=== PATIENT | female | born 1985 | race Caucasian/White ===

== ENCOUNTER 2023-05-08 11:03 | Outpatient (OUT) | payer MEDICAID, SELFPAY | END 2023-05-08 11:04 | disposition home or self-care (01) | PROVIDERS: PCP Family Medicine; Visit Provider Obstetrics & Gynecology | DX: Z01.818 Encounter for other preprocedural examination (principal); Z30.2 Encounter for sterilization ==

== ENCOUNTER 2023-05-15 06:08 | Day surgery (SDC) | payer MEDICAID, SELFPAY ==
[2023-05-08 11:25] VITALS: BP 117/68; PULSE 64; RESP 14; TEMP 36.3; O2SAT 98; BMI 29.9
[2023-05-15] VITALS (12 sets, daily range): BP systolic 115–136; BP diastolic 60–75; PULSE 62–97; RESP 10–18; TEMP 36–36.1; O2SAT 97–100; BMI 29.9
[2023-05-15 06:34] LABS: Basophils Absolute Auto 0.1 10^3/uL (0.0-0.1); Basophils Percent Auto 0.7 % (0.2-2.0); Eosinophils Absolute Auto 0.2 10^3/uL (0.0-0.7); Eosinophils Percent Auto 3.2 % (0.9-7.0); Hematocrit 39.8 % (36.0-48.0); Hemoglobin 13.1 g/dL (12.0-16.0); Immature Granulocytes Abs Auto 0.02 10^3/uL (0.00-0.03); Immature Granulocytes Pct Auto 0.3 % (0.0-0.5); Lymphocytes Percent Auto 29.4 % (20.5-60.0); Mean Corpuscular HGB Conc 32.9 g/dL (29.9-35.2); Mean Corpuscular Hemoglobin 29.6 pg (26.7-34.0); Mean Platelet Volume 9.7 fL (9.5-13.5); Monocytes Absolute Auto 0.6 10^3/uL (0.3-0.8); Monocytes Percent Auto 8.8 % (1.7-12.0); Neutrophils Absolute Auto 3.9 10^3/uL (1.4-6.5); Neutrophils Percent Auto 57.6 % (43.0-75.0); Platelet Count 273 10^3/uL (150-450); Red Blood Count 4.42 10^6/uL (4.20-5.40); Red Cell Distribution Width 12.8 % (11.0-15.0); White Blood Count 6.8 10^3/uL (4.0-11.0)
[2023-05-15 06:55] LABS: HCG Quantitative <1 mIU/mL
[2023-05-15] MEDS: LACTATED RINGER'S SOLUTION 1,000 ML 50 ML IV ×2 (07:05→08:28)
--- NOTE | 2023-05-15 08:41 | PM.ONB ---
Brief Operative Note Date of procedure: 05/15/23 Pre-op diagnosis: desires permanent sterilization Post-op diagnosis: same as pre-op Procedure: NAME OF PROCEDURE: robotic assisted bilateral laparoscopic salpingectomy with lt ovarian cystectomy PROCEDURE: The patient was taken back to the Operating Room where she was given general anesthesia without difficulty. She was then prepped and draped in the normal sterile fashion after being placed in a dorsal lithotomy position. A wet sponge stick was placed into the patient's vagina. Attention was then turned to the patient's abdomen, where a scalpel was used to make a small infraumbilical incision. The S retractors were then used to dissect the underlying layers until the fascia could be seen. The fascia was then grasped with Madison clamps and tented up. A knife was then used to make a small incision to the fascia. The muscle was identified, at that time two sutures of #0 Vicryl on a GI needle was then used and placed through the fascia. the peritoneum was then identified and entered bluntly. The 10-4 Daniel was then placed into the patient's abdomen. This was confirmed with direct visualization of the bowel, using the laparoscope. The patient's abdomen was then insufflated using approximately 4 liters of CO2 gas. Survey of the patient's abdomen demonstrated ovaries were normal in appearance as well as both tubes and uterus. A second and third rt and lt lateral robotic ports which were 5 and 8 mm in size, was then placed after the skin incision was made under direct visualization. robotic arms engaged. The patient's tube on the patient's right side was identified and tented up using a grasper, the vessel sealer apparatus was then used to come across the mesosalpingx from the fimbriated end to the insertion site at the uterus, the tube was then amputated and removed in its entirety. This was done on the contralateral side. The tubes were the removed from the patients abdomen. Lt ovarian cystectomy performed using the vessel sealer. Excellent hemostasis was noted. The lateral ports were then moved under direct visualization with excellent hemostasis. All instruments were removed from the patient's abdomen. The fascia was closed using the #0 Vicryl on GI needle. The skin was closed using 4-0 Vicryl subcuticularly. All instruments were removed from the patient's vagina as well. The patient was taken out of the dorsal lithotomy position and placed in the supine position and taken to recovery in stable condition. Sponge, lap and needle counts were correct x2. Anesthesia: AWILDA Surgeon: Reilly Capone [employer] Investigator: Fany Victor Estimated blood loss (mL): 5 Pathology: other (bilateral tubes) Condition: stable Disposition: PACU
[2023-05-15] MEDS: LACTATED RINGER'S SOLUTION 1,000 ML 150 ML IV (10:46)
== END 2023-05-15 11:20 | disposition home or self-care (01) ==
PROVIDERS: PCP Family Medicine; Visit Provider Obstetrics & Gynecology
PROC: (CPT 840; principal; 2023-05-15 07:30)
DX: Z30.2 Encounter for sterilization (principal); N83.202 Unspecified ovarian cyst, left side; G40.909 Epilepsy, unspecified, not intractable, without status epilepticus
CPT/HCPCS: 58661; 36415; 84702; 85025; 88302; J1170; J2704

== ENCOUNTER 2023-10-19 14:41 | Outpatient (OUT) | payer MEDICAID, SELFPAY | END 2023-10-19 14:42 | disposition home or self-care (01) | LOC: PST 14:41 | PROVIDERS: PCP Family Medicine; Visit Provider Surgery | DX: Z01.818 Encounter for other preprocedural examination (principal); L72.0 Epidermal cyst ==

== ENCOUNTER 2023-10-21 08:35 | Day surgery (SDC) | payer MEDICAID, SELFPAY ==
--- NOTE | 2023-10-21 | OP_ITS ---
OPERATION DATE: 10/21/2023 PREOPERATIVE DIAGNOSIS: Epidermal cyst left posterior neck. POSTOPERATIVE DIAGNOSIS: Epidermal cyst left posterior neck. PROCEDURE: Excisional biopsy epidermal cyst left posterior neck. Total length of incision 1 cm. SURGEON: Chris Mcintosh M.D. INDICATIONS AND CONSENT: Patient is a 38-year-old female, with history of previously infected epidermal cyst. The infection is now resolved. She presents for excisional biopsy of this cyst for definitive treatment and diagnosis. Indications, risks, benefits, alternatives of proceeding with excisional biopsy were explained extensively to the patient, including the risks of bleeding, infection, scarring, pain, recurrence, need for further surgery. All of her questions were answered. Informed consent was obtained. PROCEDURE: Patient brought to the procedure room, placed in the prone position. The area was prepped and draped in the usual sterile fashion. It was anesthetized with 0.5% Marcaine plain. Elliptical incision was made in the area of the skin crease and carried down to subcutaneous tissue using sharp dissection. Total length of the incision was 1 cm. An epidermal cyst was excised in its entirety and sent off to pathology. The wound was irrigated. The subcutaneous tissue was re-approximated with interrupted 4-0 Monocryl suture. The skin was then closed with a running 4-0 subcuticular Monocryl suture and skin glue. Sterile dressing was applied. The sponge and needle count was correct x3 per nursing personnel. Patient tolerated procedure well, was sent to recovery room in good condition. CC: Ashish Bernard M.D. [email or web address]
--- OUTSIDE RECORDS SUMMARY | 2023-10-21 08:39 | XMS_ITS | CCD ---
Author Name Unknown Address [address] [place] [address] Organization [facility] Care Team Providers Care Airplane Tester Name Role Phone DENISE KWOK Attending Unavailable NAYELI, DR PAYAM Cabral Primary Care Unavailable GRECHNY ., ZAMZAM MENDEZ Consulting Unavailaarti e DENISE KWOK Admitting Unavailable JOHN ., DR PIERRE Attending Unavailable NADSANAZR, DR PAYAM [facility] Primary Care Unavailable JOHN ., DR PIERRE Admitting Unavailable JOHN ., DR PIERRE Consulting Unavailable DENISE KWOK Admitting Unavailable DENISE KWOK Consulting Unavailable DENISE KWOK Attending Unavailable NAYELI, DR PAYAM [facility]ral Primary Care Unavailable NAYELI, DR PAYAM Cabral Primary Care Unavailable RAVINDER DIAMOND Admitting Unavailable RAVINDER DIAMOND Consulting Unavailable RAVINDER DIAMOND Attending Unavailable BOONE SUNSHINE Consulting Unavailable PAYAM TYLER Attending Unavailable PAYAM TYLER Primary Care Physician Chris MACKAY Attending Unavailable PAYAM TYLER Referring Unavailable Allergies Allergy Classification Reported Allergen(s) Allergy Type Date of Onset Reaction(s) Facility (1 source) No Known Medication Allergies; Translations: [No Known Medication Allergies] Propensity to adverse reactions (disorder) [facility] Repository Medications Current Medications Medication Drug Class(es) Dates Sig (Normalized) Sig (Original) fluticasone propionate 0.05 mg/actuat metered dose nasal spray (1 source) Corticosteroid Start: 09-16-2023 Flonase 0.05 mg/inh [place] 1 spray(s), Nasal, BID, Refill(s) 0 Start Date: 09/16/23 Status: Ordered Problems Active Problems Problem Classification Problem Date Documented Date Episodic/Chronic Abdominal pain (4 sources) Pelvic and perineal pain; Translations: [PELVIC AND PERINEAL PAIN] Onset: 10-20-2022 Episodic Immunizations and screening for infectious disease (1 source) Encounter for screening for human papillomavirus (HPV); Translations: [ENC SCREENING HUMAN PAPILLOMAVIRUS] Onset: 12-13-2022 Episodic Inflammatory diseases of female pelvic organs (1 source) Acute vaginitis; Translations: [ACUTE VAGINITIS] Onset: 10-20-2022 Episodic Other female genital disorders (3 sources) Other specified noninflammatory disorders of vagina; Translations: [OTH SPEC NONINFLAMMATORY D/O VAGINA] Onset: 10-19-2022 Episodic Other nutritional; endocrine; and metabolic disorders (1 source) Body mass index 30+ - obesity 10-06-2023 Chronic Other nutritional; endocrine; and metabolic disorders (1 source) Obesity 09-16-2023 Chronic Other screening for suspected conditions (not mental disorders or infectious disease) (4 sources) Encounter for screening for malignant neoplasm of cervix; Translations: [ENC SCREENING MALIG NEOPLASM CERV] Onset: 12-09-2022 Episodic Other skin disorders (1 source) Rash and other nonspecific skin eruption; Translations: [RASH OTH NONSPECIFIC SKIN ERUPTION] Onset: 10-21-2022 Episodic Other skin disorders (1 source) Epidermoid cyst; Translations: [Epidermal cyst] Onset: 10-06-2023 Episodic Other skin disorders (1 source) Epidermoid cyst of skin of neck 10-06-2023 Episodic Other upper respiratory disease (1 source) Allergic rhinitis 09-16-2023 Chronic Unclassified (1 source) Sebaceous cyst of skin 09-16-2023 Past or Other Problems Problem Classification Problem Date Documented Da te Episodic/Chronic E Codes: Overexertion (1 source) Slipping, tripping and stumbling without falling due to stepping into hole or opening, initial encounter; Translations: [SLIP STUMBL NO FALL STEP HOLE INIT] Onset: 02-03-2022 Episodic Other non-traumatic joint disorders (3 sources) Pain in right ankle and joints of right foot; Translations: [PAIN IN RIGHT ANKLE] Onset: 02-01-2022 Episodic Sprains and strains (1 source) Sprain of unspecified ligament of right ankle, initial encounter; Translations: [SPRAIN UNS LIGAMENT RT ANKLE INIT] Onset: 02-03-2022 Episodic Results Test Name Value Interpretation Reference Range Facility Consent for Procedure/Surger yon 10-08-2023 Consent for Procedure/Surgery [id number]# 1.00TIFF [facility] Facesheeton 10-07-2023 Facesheet [id number] 0 [id number]#1 .00TIFF [facility] Insurance Correspondenceon 0 10-07-2023 Insurance Correspondence [id number]# 1.00TIFF [facility] Ambulatory Visit Summaryon 0 10-06-2023 Ambulatory Visit Summary JENNY CAO :1985 Visit Date:10/06/2023 Ambulatory Visit Instructions Your Care Team Attending Physician - ARNALDO DUMONT, Chris Thomas Primary Care Physician - NAYELI DUMONT, PAYAM Referring Physician - NAYELI DUMONT, PAYAM This Is Your Medications List Contact prescribing physician if questions or concerns fluticasone nasal (Flonase 0.05 mg/inh [place]) Procedures Performed Dilation and curettage, LEEP, Tubal ligation. Discharge Vitals Heart Rate (Peripheral) 70 Respiratory Rate 16 Blood Pressure 126/86 Height 154.9 cm Height 61 in Weight 74.2 kg Weight 163.24 lb BMI 30.92 Medications What How Much When Instructions Unchanged fluticasone nasal (Flonase 0.05 mg/ inh [place]) 1 Sprays Nasal Inhalation 2 times a day Contact prescribing physician if questions or concerns Medications and Immunizations Administered Not Given influenza virus vaccine, inactivated, Patient Refuses Allergies No Known Allergies No Known Medication Allergies Problems Ongoing - Any problem that you are currently receiving treatment for. Allergic rhinitis BMI 30.0-30.9,adult Obesity Sebaceous cyst Patient Survey You may receive a survey via text or e-mail asking about your office visit. Please share your experience with us by completing your survey. We appreciate your feedback and thank you for choosing us for your care. [facility] Physician Referralon 024 Physician Referral [id number]#1. 00TIFF [facility] PAP ACOG PANEL 2: 30 to 65on 12-18-2022 . . Normal [facility] Comment on above: Result Comment: Perf ormed at: WB Performed By: #### [id number] #### [facility] [address] [address] [address] Thomas Steele Age Gdln ACOG Testing 30-65 Normal [facility] Comment on above: Performed By: #### [id number] #### [facility] [address] [address] [address] Thomas Steele DIAGNOSIS: Comment Normal [facility] Comment on above: Result Comment: NEGA TIVE FOR INTRAEPITHELIAL LESION OR MALIGNANCY. Performed at: WB Performed By: #### 4 [id number] #### [facility] [address] [address] [address] Thomas Steele HPV Aptima Positive Abnormal Negative [facility] Comment on above: Result Comment: This nucleic acid amplification test detects fourteen high-risk HPV types (16,18,31,33,35,39,45,51,52,56,58,59,66,68) without differentiation. Performed at: =G Performed By: #### 4 [id number] #### [facility] [address] [address] [address] Thomas Steele HPV Genotype 16 Negative Normal Negative [facility] Comment on above: Performed By: #### 4 [id number] #### [facility] [address] [place] [address] Dr. Thomas Steele HPV Genotype 18,45 Negative Normal Negative [facility] Comment on above: Performed By: #### 4 [id number] #### [facility] [address] [address] [address] Thomas Steele HPV Genotype Reflex Comment Normal [facility] Comment on above: Result Comment: Aristeo polk, see HPV Genotype results. Performed at: WB Performed By: #### 4 [id number] #### [facility] [address] [place] [address] Dr. Thomas Steele Methodology: Comment Normal [facility] Comment on above: Result Comment: This liquid based ThinPrep(R) pap test was screened with the use of an image guided system. Performed at: WB Performed By: #### 4 [id number] #### [facility] [address] [place] [address] Dr. Thomas Steele Note: Comment Normal [facility] Comment on above: Result Comment: The Pap smear is a screening test designed to aid in the detection of premalignant and malignant conditions of the uterine cervix. It is not a diagnostic procedure and should not be used as the sole means of detecting cervical cancer. Both false-positive and false-negative reports do occur. . Performed at: WB Performed By: #### [id number] #### [facility] [address] [place] [address] Dr. Thomas Steele Performed by: Comment Normal [facility] Comment on above: Result Comment: Natalie Jung, Electric Tool Repairer (ASCP) Performed at: WB Performed By: #### [id number] #### [facility] [address] [place] [address] Dr. Thomas Steele Specimen adequacy: Comment Normal [facility] Comment on above: Result Comment: Sati sfactory for evaluation. Endocervical and/or squamous metaplastic cells (endocervical component) are present. Performed at: WB Performed By: #### 4 [id number] #### [facility] [address] [place] [address] Dr. 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 Typing was confirmed by monoclonal antibody microscopic immunofluorescence. Performed By: #### V IRALCX #### [facility] [address] [place] [address] Dr. Thmoas Steele CHLAMYDIA/GONOCOCCUS ERNESTO (SW AB/URINE/PAPon 10-22-2022 Chlamydia trachomatis, ERNESTO Negative Normal Negative [facility] Comment on above: Performed By: #### C T/NGNA #### [facility] [address] [place] [address] Dr. Thomas Steele Neisseria gonorrhoeae, ERNESTO Negative Normal Negative [facility] Comment on above: Performed By: #### C T/NGNA #### [facility] [address] [place] [address] Dr. Thomas Steele URon 10-19-2022 , QUAL Negative Normal NEGATIVE [facility] Comment on above: Performed By: #### P REGU #### [facility] [address] [place] [address] Dr. Thomas Steele WET PREPon 10-19-2022 CLUE CELLS SEEN Abnormal NONE SEEN [facility] Comment on above: Performed By: #### W P #### [facility] [address] [place] [address] Dr. Thomas Steele FUNGAL ELEMENTS NONE SEEN Normal NONE SEEN [facility] Comment on above: Performed By: #### W P #### [facility] [address] [place] [address] Dr. Thomas Steele RBC -WET PREP RARE Abnormal NONE SEEN [facility] Comment on above: Performed By: #### W P #### [facility] [address] [place] [address] Dr. Thomas Steele TRICHOMONAS NONE SEEN Normal NONE SEEN [facility] Comment on above: Performed By: #### W P #### [facility] [address] [place] [address] Dr. Thomas Steele WBC- WET PREP FEW Abnormal NONE SEEN [facility] Comment on above: Performed By: #### W P #### [facility] [address] [place] [address] Dr. Thomas Steele WET PREP BACTERIA MODERATE Abnormal NONE SEEN [facility] Comment on above: Performed By: #### W P #### [facility] [address] [place] [address] Dr. Thomas Steele XR ANKLE RT MIN 3 VIEWSon XR ANKLE RT MIN 3 VIEWS EXAM: XR ANKLE RT MIN 3 VIEWS 02/01/2022 12:29 AM EDT OH001 CLINICAL STATEMENT: Pain COMPARISON: No prior studies are available at the time of dictation. TECHNIQUE: AP and lateral views of the right ankle are submitted. FINDINGS: The osseous structures are intact and in anatomic alignment. There is no acute fracture and/or dislocation. The joint spaces are preserved. Mild lateral ankle soft tissue swelling. Bone mineralization is within normal limits for the patient's age. IMPRESSION: Mild lateral ankle soft tissue swelling. The fracture and/or dislocation. FOLLOW UP: Follow-up as clinically indicated. Electronically authenticated by: BOONE SUNSHINE Date: 2022-02-01 03:04 Normal [facility] Vital Signs Date Time Vital Sign Value Performing Clinician Carleen álvarez 10-06-2023 14:17-0500 Blood Pressure Location Chris ARNALDO [facility] 10-06-2023 14:17-0500 Diastolic blood pressure 86 mm[Hg] Chris MACKAY [facility] 10-06-2023 14:17-0500 Heart rate 70 /min Chris OLIVERL [facility] 10-06-2023 14:17-0500 Respiratory rate 16 /min Chris MACKAY [facility] 10-06-2023 14:17-0500 Systolic blood pressure 126 mm[Hg] Chris MACKAY [facility] Encounters Encounter Date Encounter Type Care Provider Facility Start: 10-06-2023 End: 10-07-2023 ambulatory Chris MACKAY Facility:[facility] Start: 10-06-2023 End: 10-06-2023 Patient encounter procedure Chris MACKAY [facility] Start: 09-03-2023 ambulatory Chris MACKAY Facility:[facility] Start: 09-02-2023 End: 09-02-2023 ambulatory PAYAM TYLER Not Available Start: 12-09-2022 End: 12-09-[address] IGNACIO LOPEZ . Facility:[facility] Start: 10-20-2022 End: 10-20-2022 ambulatory DENISE KWOK Facility:[facility] Start: 10-19-2022 End: 10-19-2022 ambulatory DENISE KWOK Facility:[facility] Start: 02-01-2022 End: 02-01-[address] PAYAM TYLER Facility:[facility] Procedures Date Procedure Procedure Detail Performing Clinician Dilation and curettage Johnnie MACKAY Ligation of fallopian tube Max MACKAY Loop electrosurgical excision procedure Chris MACKAY Immunizations Immunization Date Immunization Notes Care Provider Keiko ramirez NEGATED: Highlighted row has not occurred!10-06-2023 influenza virus vaccine, unspecified formulation Chris MACKAY [facility] Payers Date Payer Category Payer Medicaid [id number] 1985 Unknown [id number] 2.16.84 [id number] 1985 Unknown [id number] 2.16.84 [id number] 1985 Unknown [id number] 2.16.84 [id number] 1985 Unknown [id number] 2.16.84 [id number] 1985 Unknown [id number] 2.16.84 [id number] 1985 Unknown [id number] 2.16.8 [id number] 1961 Unknown [id number] Social History Date Type Detail Facility Start: 10-06-2023 Tobacco smoking status Never s moked tobacco (finding) [facility] Tobacco smoking status Never [facility] Sex Assigned At Female [facility] Functional Status Date Assessment Result Facility 10-06-2023 Functional Status N/A [facility] Clinical Note 10-06-2023 Note Date & Type Note Facility 10-06-2023 Note Chief Complaint consultation for sebaceous cyst HPI Staff 38 year old female presents on consultation from Dr. Tyler for sebaceous cyst. Reports she noted left posterior neck nodule approximately 1 year ago. She reports two months ago this area tripled in size, was red and sore. No ATB use. Area has never drained. Since this time, nodule has gradually reduced in size, redness and discomfort have resolved. History of Present Illness 38 yo female with 1 yr h/o epidermal cyst left posterior neck, 2 months ago became inflamed, enlarged to 3 x normal size, no drainage, no antibiotics; now back down to normal size, no pain or drainage; no asa or NSAID use; no tobacco use. Review of Systems PHQ Score Initial Depression Screen Score: 0 SCORE ROS - Provider Constitutional: no fever, no sweats, no weight loss. Eyes: no glasses, no blurred vision, no visual loss. ENMT: no dentures, no hoarseness, no swallowing difficulties, no hearing loss, no ear infection(s), no nose bleeds. Cardiovascular: normal blood pressure, no chest pain, regular heartbeat, no heart murmur. Respiratory: no shortness of breath, no cough, no asthma, no wheezing. Gastrointestinal: no nausea, no vomiting, no diarrhea, no constipation, no blood in stool, no change in bowel habits, no abdominal pain, no hepatitis. Genitourinary: no kidney stones, no urine infection, no dysuria. Musculoskeletal: no pain, no weakness. Skin: no changing moles, no rash, yes skin lumps. Neurologic: no seizures, no epilepsy, no headache. Psychiatric: no emotional or psychiatric problem. Heme/Lymph: no bleeding problems, no anemia, no blood clots, no transfusions. Allergy/Immunologic: no swollen lymph nodes/glands, no IV drug abuse. Other: Additional ROS info: Except as noted in the above Review of Systems and in the History of Present Illness, all other systems have been reviewed and are negative or noncontributory. Physical Exam Vitals & Measurements HR: 70(Peripheral) RR: 16 BP: 126/86 HT: 61 in HT: 154.9 cm WT: 74.2 kg WT: 163.24 lb BMI: 30.92 HEENT: normal conjunctiva, sclera clear, no scleral icterus, EOM intact, PERRLA, oral mucosa moist without lesions. Neck: trachea midline, no mass, symmetric, no thyromegaly or nodules, no adenopathy Respiratory: lungs CTA, respirations non labored. Cardiovascular: regular rate and rhythm, no murmur, no pedal edema or varicosities. Gastrointestinal: soft, non distended, no tenderness, no masses, no palpable hernias, diastasis recti no, no hepatosplenomegaly; normal bs Lymphatic: no cervical adenopathy, no axillary adenopathy, no inguinal adenopathy. Musculoskeletal: normal gait, digits and nails without infection, nodes, cyanosis, clubbing. Skin: no rashes, no lesions, no ulcers, left posterior neck with 1 cm epidermal cyst, no inflammation or erythema, no drainage. Psychiatric/Neuro: oriented to time, place, person, judgement normal, affect appropriate for age, insight intact, no focal deficits. Tests: review of old records completed , Discussed surgical options, risks, and possible complications with patient. Assessment/Plan 1. Epidermal cyst of neck (L72.0: Epidermal cyst) plan excisional biopsy under local anesthesia at [facility], informed consent obtained. Follow-up No qualifying data available Problem List/Past Medical History Ongoing Allergic rhinitis BMI 30.0-30.9,adult Epidermal cyst of neck Obesity Sebaceous cyst Historical No qualifying data Procedure/Surgical History Dilation and curettage, LEEP, Tubal ligation. Medications Flonase 0.05 mg/inh [place], 1 spray(s), Nasal, BID Allergies No Known Allergies No Known Medication Allergies Social History Alcohol - Denies Alcohol Use, 10/06/2023 Substance Abuse - Denies Substance Abuse, 10/06/2023 Tobacco Never (less than 100 in lifetime) Tobacco Use:. Never Smokeless Tobacco Use:., 10/06/2023 Family History Family history is negative Immunizations Vaccine Date Status Comments influenza virus vaccine, inactivated - Not Given Patient Refuses [facility] Comment on above: Result Comment: Elec tronically Signed By: ARNALDO DUMONT, Chris Beckwith\Date and Time Signed: 10/06/23 14:43 EST Evaluation + Plan note Note Date & Type Note Facility Evaluation + Plan note No data available for this section [facility] Discharge instructions Note Date & Type Note Facility Hospital Discharge instructions No data available for this section [facility] Progress note Note Date & Type Note Facility Progress note No data available for this section [facility] Summary Purpose Family History No Family History Records FoundNo Family History Records Found No data available for this section No Family History Records Found Advance Directives No Advanced Directives Records FoundNo Advanced Directives Records FoundNo Advanced Directives Records Found Additional Source Comments INFORMATION SOURCE (unrecogn ized section and content) DATE CREATED AUTHOR 12/18/2022 [facility] DATE CREATED AUTHOR AUTHOR'S ORGANIZ ATION 09/03/2023 [facility] EPIC DATE CREATED AUTHOR AUTHOR'S ORGANIZ ATION 10/13/2023 [facility] Patient Care team informatio n (unrecognized section and content) Personnel Name: PAYAM TYLER MD Address: Address: [address] [place] [address] FOR RECORDS PERTAINING TO PATIENTS WHO ARE OR HAVE BEEN ENROLLED IN A CHEMICAL DEPENDENCY/SUBSTANCEABUSE PROGRAM, SOME INFORMATION MAY BE OMITTED. This clinical summary was aggregated from multiple sources. Caution should be exercised in using it in the provision of clinical care. This summary normalizes information from multiple sources, and as a consequence, information in this document may materially change the coding, format and clinical context of patient data. In addition, data may be omitted in some cases. CLINICAL DECISIONS SHOULD BE BASED ON THE PRIMARY CLINICAL RECORDS. [facility] [employer] provides no warranty or guarantee of the accuracy or completeness of information in this document.
[2023-10-21 10:50] VITALS: BP 123/76; PULSE 72; RESP 18; O2SAT 98
[2023-10-21] MEDS: BUPIVACAINE HCL 0.5% PF 50 MG/10 ML VIAL INJ (10:52)
[2023-10-21 11:05] VITALS: BP 133/74; PULSE 64; RESP 18; O2SAT 98
== END 2023-10-21 11:15 | disposition home or self-care (01) ==
PROVIDERS: PCP Family Medicine; Visit Provider Surgery
PROC: (CPT 11421; principal; 2023-10-21 09:30)
DX: L72.0 Epidermal cyst (principal); Z98.51 Tubal ligation status
CPT/HCPCS: 11421; 88304

== ENCOUNTER 2023-12-14 21:33 | Outpatient (REF) | payer MEDICAID, SELFPAY ==
--- OUTSIDE RECORDS SUMMARY | 2023-12-14 21:38 | XMS_ITS | CCD ---
Author Organization [facility] Care Team Providers Care Social Services Name Role Phone DENISE KWOK Attending Unavailable NAYELI, DR PAYAM Cabral Primary Care Unavailable GRECHNY ., ZAMZAM MENDEZ Consulting Unavailaarti e DENISE KWOK Admitting Unavailable JOHN ., DR PIERRE Attending Unavailable NADERER, DR PAYAM Cabral Primary Care Unavailable JOHN ., DR PIERRE Admitting Unavailable JOHN ., DR PIERRE Consulting Unavailable DENISE KWOK Admitting Unavailable DENISE KWOK Consulting Unavailable DENISE KWOK Attending Unavailable NAYELI, DR PAYAM Cabral Primary Care Unavailable PEPEEREMartha, DR PAYAM Cabral Primary Care Unavailable RAVINDER DIAMOND Admitting Unavailable LOBORAVINDER Consulting Unavailable LOBO, RAVINDER Attending Unavailable BOONE SUNSHINE Consulting Unavailable PAYAM TYLER Attending Unavailable PAYAM TYLER Primary Care Physician Chris Mcintosh Attending Unavailable Chris Mcintosh Admitting Unavailable PAYAM TYLER Referring Unavailable Chris MCINTOSH Attending Unavailable NILL, Chris Thomas Attending Unavailable NILL, Chris Thomas Attending Unavailable Allergies Allergy Classification Reported Allergen(s) Allergy Type Date of Onset Reaction(s) Facility (1 source) No Known Medication Allergies; Translations: [No Known Medication Allergies] Propensity to adverse reactions (disorder) [facility] Medications Current Medications Medication Drug Class(es) Dates Sig (Normalized) Sig (Original) fluticasone propionate 0.05 mg/actuat metered dose nasal spray (2 sources) Corticosteroid Start: 09-16-2023 Flonase 0.05 mg/inh Moore 1 spray(s), Nasal, BID, Refill(s) 0 Start [...] Episodic Other nutritional; endocrine; and metabolic disorders (2 sources) Body mass index 30+ - obesity 10-06-2023 Chronic Other nutritional; endocrine; and metabolic disorders (2 sources) Obesity 09-16-2023 Chronic Other screening for suspected conditions (not mental disorders or infectious disease) (4 sources) Encounter for screening for malignant neoplasm of cervix; Translations: [ENC SCREENING MALIG NEOPLASM CERV] Onset: 12-09-2022 Episodic Other skin disorders (1 source) Rash and other nonspecific skin eruption; Translations: [RASH OTH NONSPECIFIC SKIN ERUPTION] Onset: 10-21-2022 Episodic Other skin disorders (2 sources) Epidermoid cyst; Translations: [Epidermal cyst] Onset: 10-06-2023 Episodic Other skin disorders (2 sources) Epidermoid cyst of skin of neck 10-06-2023 Episodic Other upper respiratory disease (2 sources) Allergic rhinitis 09-16-2023 Chronic Unclassified (2 sources) Sebaceous cyst of skin 09-16-2023 Past or [...] Test Name Value Interpretation Reference Range Facility Ambulatory Visit Summaryon 0 11-03-2023 Ambulatory Visit Summary KEZIA JAUREGUI :1985 Visit Date:11/03/2023 Ambulatory Visit Instructions Your Diagnosis Epidermal cyst of neck Your Care Team Attending Physician - THOMPSON DUMONT, Chris Thomas Primary Care Physician - PAYAM TYLER MD This Is Your Medications List Contact prescribing physician if questions or concerns fluticasone nasal (Flonase 0.05 mg/inh Moore) Procedures Performed Excision of cyst (10/21/2023), Dilation and curettage, LEEP, Tubal ligation. Medications What How Much When Instructions Unchanged fluticasone nasal (Flonase 0.05 mg/ inh Moore) 1 Sprays Nasal Inhalation 2 times a day Contact prescribing physician if questions or concerns Allergies No Known Allergies No Known Medication Allergies Problems Ongoing - Any problem that you are currently receiving treatment for. Allergic rhinitis BMI 30.0-30.9,adult Epidermal cyst of neck Obesity Sebaceous cyst Patient Survey You may receive a survey via text or e-mail asking about your office visit. Please share your experience with us by completing your survey. We appreciate your feedback and thank you for choosing us for your care. [facility] Ambulatory Visit Summary KEZIA JAUREGUI :1985 Visit Date:11/03/2023 Ambulatory Visit Instructions Your Diagnosis Epidermal cyst of neck Your Care Team Attending Physician - THOMPSON DUMONT, Chris Thomas Primary Care Physician - PAYAM TYLER MD This Is Your Medications List Contact prescribing physician if questions or concerns fluticasone nasal (Flonase 0.05 mg/inh Moore) Procedures Performed Excision of cyst (10/21/2023), Dilation and curettage, LEEP, Tubal ligation. Medications What How Much When Instructions Unchanged fluticasone nasal (Flonase 0.05 mg/ inh Moore) 1 Sprays Nasal Inhalation 2 times a day Contact prescribing physician if questions or concerns Allergies No Known Allergies No Known Medication Allergies Problems Ongoing - Any problem that you are currently receiving treatment for. Allergic rhinitis BMI 30.0-30.9,adult Epidermal cyst of neck Obesity Sebaceous cyst Patient Survey You may receive a survey via text or e-mail asking about your office visit. Please share your experience with us by completing your survey. We appreciate your feedback and thank you for choosing us for your care. [facility] General Surgery Office/Clini c Noteon 11-03-2023 General Surgery Office/Clinic Note Chief Complaint post operative follow up HPI Staff 13 day post operative follow up post excisional biopsy epidermal cyst posterior neck. Denies discomfort, bleeding or drainage. History of Present Illness 13 days s/p excisional biopsy epidermal cyst left posterior neck; pathology consistent with epidermal cyst; doing well, denies pain, no drainage, some itching. Review of Systems ROS - Provider Constitutional: no fever, no [...] weakness. Skin: no changing moles, no rash, no skin lumps. Neurologic: no seizures, no epilepsy, [...] and are negative or noncontributory. Physical Exam skin: incision healing well, no erythema or drainage, no ecchymosis, minimal induration. Assessment/Plan 1. Epidermal cyst of neck (L72.0: Epidermal cyst) doing well, call with problems/questions. Follow-up No qualifying data available Problem List/Past Medical History Ongoing Allergic rhinitis BMI 30.0-30.9,adult Epidermal cyst of neck Obesity Sebaceous cyst Historical No qualifying data Procedure/Surgical History Excision of cyst (10/21/2023), Dilation and curettage, LEEP, Tubal ligation. Medications Flonase 0.05 mg/inh Moore, 1 spray(s), Nasal, BID Allergies No Known Allergies No Known Medication Allergies Social History Alcohol - Denies Alcohol Use, 10/06/2023 Substance Abuse - Denies Substance Abuse, 10/06/2023 Tobacco Never (less than 100 in lifetime) Tobacco Use:. Never Smokeless Tobacco Use:., 10/06/2023 Family History Family history is negative Immunizations Vaccine Date Status Comments influenza virus vaccine, inactivated - Not Given Patient Refuses [facility] Comment on above: Result Comment: Elec tronically Signed By: THOMPSON DUMONT, Chris Beckwith\Date and Time Signed: 11/03/23 14:55 EDT Pathology Noteon 10-27-2023 Pathology Note [id number] .00TIFF [facility] Operative Reporton Operative Report [id number] .00TIFF [facility] Martinez 10-21-2023 L Specimen: [id number] Received: 10/21/23 Status: MARIO Req Num: [id number] Spec Type: Surgical Subm Dr: Chris Mcintosh MD FACS Tissues: A Soft Tissue/Surgical Margin-Other than Tumor,Mass,Lip or Angeline (EPIDERMAL CYST Procedures: HE, Gross/Micro L3 Age/ Patient Sex Location Account Attending Physician Kezia Jauregui 38/F [facility] [id number] Chris Mcintosh MD FACS SPEC NUM: [id number] RECD: 10/21/23 STATUS: [facility] RE NUM: [id number] LINDA: 10/21/[address]: Chris Mcintosh MD FACS ENTERED: 10/21/23 [facility] DR: Anabela Mcfadden SPEC TYPE: Surgical DEPT: NIYA BULL ORDERED: HE, Gross/Micro L3 ORDERED: HE, Gross/Micro L3 Pathological Diagnosis Cyst, Left posterior neck, Excision: Ruptured Epidermal Inclusion Cyst. Clinical Information Epidermal cyst left posterior neck Gross Description Received in formalin labeled with the patient's name, date of and epidermal cyst left posterior neck is a 0.7 x 0.3 cm ellipse of persaud-krishnamurthy skin skin excised to a depth of 0.3 cm. The specimen is inked and bisected. Entirely submitted in one cassette labeled A1. CPT Codes 54051 -------- -------- Specimen: [id number] Received: 10/21/23 Status: MARIO Oakesparesh Num: [id number] Spec Type: Surgical Subm Dr: Chris Mcintosh MD FACS Tissues: A Soft Tissue/Surgical Margin-Other than Tumor,Mass,Lip or Angeline (EPIDERMAL CYST Procedures: MICHAEL Gross/Andrey L3 -------- Patient: Kezia Jauregui [id number] (Continued) -------- Signed (signature on file) Gerri Alberto MD 10/26/23 1421 [facility] Consent for Procedure/Surger yon 10-08-2023 Consent for Procedure/Surgery [id number] 1.00TIFF [facility] Facesheeton 10-07-2023 Facesheet [id number] .00TIFF [facility] Insurance Correspondenceon 0 10-07-2023 Insurance Correspondence [id number] 1.00TIFF [facility] Ambulatory Visit Summaryon 0 10-06-2023 Ambulatory Visit Summary KEZIA JAUREGUI Martha :1985 Visit Date:10/06/2023 Ambulatory Visit Instructions Your Care Team Attending Physician - THOMPSON DUMONT, Chris Thomas Primary Care Physician - NAYELI DUMONT, PAYAM Referring Physician - PAYAM TYLER MD This Is Your Medications List Contact prescribing physician if questions or concerns fluticasone nasal (Flonase 0.05 mg/inh Moore) Procedures Performed Dilation and curettage, LEEP, Tubal ligation. Discharge Vitals Heart Rate (Peripheral) 70 Respiratory Rate 16 Blood Pressure 126/86 Height 154.9 cm Height 61 in Weight 74.2 kg Weight 163.24 lb BMI 30.92 Medications What How Much When Instructions Unchanged fluticasone nasal (Flonase 0.05 mg/ inh Moore) 1 Sprays Nasal Inhalation 2 times a [...] you for choosing us for your care. [facility] Physician Referralon 024 Physician Referral [id number]. 00TIFF [facility] PAP ACOG PANEL 2: 30 to 65on 12-18-2022 . . Normal [facility] Comment on above: Result Comment: Perf ormed at: WB Performed By: #### 4 [id number] #### [facility] [address] [address] [address] Thomas Steele Age Gdln ACOG Testing 30-65 Normal [facility] Comment on above: Performed By: #### 4 [id number] #### [facility] [address] [address] [address] Thomas Steele DIAGNOSIS: Comment Normal [facility] Comment on above: Result Comment: NEGA TIVE FOR INTRAEPITHELIAL LESION OR MALIGNANCY. Performed at: WB Performed By: #### 4 [id number] #### [facility] [address] [address] [address] Thomas Steele HPV Aptima Positive Abnormal Negative [facility] Comment on above: Result Comment: This nucleic acid amplification test detects fourteen high-risk HPV types (16,18,31,33,35,39,45,51,52,56,58,59,66,68) without differentiation. Performed at: =G Performed By: #### 4 [id number] #### [facility] [address] [address] [address] Thomas Steele HPV Genotype 16 Negative Normal Negative [facility] Comment on above: Performed By: #### 4 [id number] #### [facility] [address] [address] [address] Thomas Steele HPV Genotype 18,45 Negative Normal Negative [facility] Comment on above: Performed By: #### 4 [id number] #### [facility] [address] [address] [address] Thomas Steele HPV Genotype Reflex Comment Normal [facility] Comment on above: Result Comment: Aristeo polk, see HPV Genotype results. Performed at: WB Performed By: #### 4 [id number] #### [facility] [address] [place] [address] Dr. Thomas Steele Methodology: Comment Normal [facility] Comment on above: Result Comment: This liquid based ThinPrep(R) pap test was screened with the use of an image guided system. Performed at: WB Performed By: #### 4 [id number] #### [facility] [address] [place] [address] Dr. Thomas Steele Note: Comment Normal [facility] Comment on above: Result Comment: The Pap smear is a screening test designed to aid in the detection of premalignant and malignant conditions of the uterine cervix. It is not a diagnostic procedure and should not be used as the sole means of detecting cervical cancer. Both false-positive and false-negative reports do occur. . Performed at: WB Performed By: #### 4 [id number] #### [facility] [address] [place] [address] Dr. Thomas Steele Performed by: Comment Normal [facility] Comment on above: Result Comment: Natalie Jung, Box Truck Driver (ASCP) Performed at: WB Performed By: #### 4 [id number] #### [facility] [address] [place] [address] Dr. Thomas Steele Specimen adequacy: Comment Normal [facility] Comment on above: Result Comment: Sati sfactory for evaluation. Endocervical and/or squamous metaplastic cells (endocervical component) are present. Performed at: WB Performed By: #### 4 [id number] #### [facility] [address] [place] [address] Dr. 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 Typing was confirmed by monoclonal antibody microscopic immunofluorescence. Performed By: #### V IRALCX #### [facility] [address] [place] [address] Dr. Thomas Steele CHLAMYDIA/GONOCOCCUS ERNESTO (SW AB/URINE/PAPon 10-22-2022 Chlamydia trachomatis, ERNESTO Negative Normal Negative [facility] Comment on above: Performed By: #### C T/NGNA #### [facility] [address] [address] [address] Thomas Steele Neisseria gonorrhoeae, ERNESTO Negative Normal Negative [facility] Comment on above: Performed By: #### C T/NGNA #### [facility] [address] [address] [address] Thomas Steele URon 10-19-2022 , QUAL Negative Normal NEGATIVE [facility] Comment on above: Performed By: #### P REGU #### [facility] [address] [address] [address] Thomas Steele WET PREPon 10-19-2022 CLUE CELLS SEEN Abnormal NONE SEEN [facility] Comment on above: Performed By: #### W P #### [facility] [address] [place] [address] Dr. Thomas Steele FUNGAL ELEMENTS NONE SEEN Normal NONE SEEN [facility] Comment on above: Performed By: #### W P #### [facility] [address] [address] [address] Thomas Steele RBC -WET PREP RARE Abnormal NONE SEEN [facility] Comment on above: Performed By: #### W P #### [facility] [address] [address] [address] Thomas Steele TRICHOMONAS NONE SEEN Normal NONE SEEN [facility] Comment on above: Performed By: #### W P #### [facility] [address] [address] [address] Thomas Steele WBC- WET PREP FEW Abnormal NONE SEEN [facility] Comment on above: Performed By: #### W P #### [facility] [address] [place] [address] Dr. Thomas Steele WET PREP BACTERIA MODERATE Abnormal NONE SEEN [facility] Comment on above: Performed By: #### W P #### [facility] [address] [place] [address] Dr. Thomas Steele XR ANKLE RT MIN [...] by: BOONE SUNSHINE Date: 2022-02-01 03:04 Normal [facility] Vital Signs Date Time Vital Sign Value Performing Clinician Carleen álvarez 10-06-2023 14:17-0500 Blood Pressure Location Chris NILL [facility] 10-06-2023 14:17-0500 Diastolic blood pressure 86 mm[Hg] Chris NILL [facility] 10-06-2023 14:17-0500 Heart rate 70 /min Chris NILL [facility] 10-06-2023 14:17-0500 Respiratory rate 16 /min Chris NILL [facility] 10-06-2023 14:17-0500 Systolic blood pressure 126 mm[Hg] Chris NILL [facility] Encounters Encounter Date Encounter Type Care Provider Facility Start: 11-03-2023 End: 11-04-2023 ambulatory Chris MCINTOSH Facility:[facility] Start: 11-03-2023 End: 11-03-2023 Patient encounter procedure Chris Thomas NILL General Surgery [facility] Start: 10-21-2023 End: 10-22-2023 ambulatory Chris Mcintosh Facility:[facility] Start: 10-06-2023 End: 10-07-2023 ambulatory PAYAM TYLER Facility:[facility] Start: 10-06-2023 End: 10-06-2023 Patient encounter procedure Chris Thomas NILL General Surgery [facility] Start: 09-03-2023 ambulatory PAYAM TYLER [facility] Start: 09-02-2023 End: 09-02-2023 ambulatory PAYAM TYLER Not Available Start: 12-09-2022 End: 12-09-[address] IGNACIO LOPEZ . Facility:[facility] Start: 10-20-2022 End: 10-20-2022 ambulatory DENISE KWOK Facility:[facility] Start: 10-19-2022 End: 10-19-2022 ambulatory DENISE KWOK Facility:[facility] Start: 02-01-2022 End: 02-01-[address] PAYAM TYLER Facility:[facility] Procedures Date Procedure Procedure Detail Performing Clinician Start: 10-21-2023 Excision of cyst Nestorae crys NILL Comment on above: epidermal Dilation and curettage Johnnie rodas NILL Ligation of fallopian tube M ichxiao NILL Loop electrosurgical excision procedure Chris OLIVERL Immunizations Immunization Date Immunization Notes Care Provider Keiko ramirez NEGATED: Highlighted row has not occurred!10-06-2023 influenza virus vaccine, unspecified formulation Chris OLIVERL [facility] Payers Date Payer Category Payer Self-pay 2022 Medicaid [id number] 1985 Unknown [id number] 2.16.84 [id number] 1985 Unknown [id number] 2.16.84 [id number] 1985 Unknown [id number] 2.16.84 [id number] 1985 Unknown [id number] .16.84 [id number] 1985 Unknown [id number] 2.16.84 [id number] 1985 Unknown [id number] 2.16.8 [id number] 1985 Unknown [id number] 2.16.8 [id number] 1985 Unknown [id number] 2.16.8 [id number] 1961 Unknown [id number] Unknown [id number] 2.16.8 [id number] Social History Date Type Detail Facility Start: 10-06-2023 Tobacco smoking status Never s moked tobacco (finding) [facility] Tobacco smoking status Never Gener al [facility] [place] Sex Assigned At Female [facility] Functional Status Date Assessment Result Facility [...] plan excisional biopsy under local anesthesia at [facility], informed consent obtained. Follow-up No qualifying data available Problem List/Past Medical History Ongoing Allergic rhinitis BMI 30.0-30.9,adult Epidermal cyst of neck Obesity Sebaceous cyst Historical No qualifying data Procedure/Surgical History Dilation and curettage, LEEP, Tubal ligation. Medications Flonase 0.05 mg/inh Moore, 1 spray(s), Nasal, BID Allergies No Known Allergies No Known Medication Allergies Social History Alcohol - Denies Alcohol Use, 10/06/2023 Substance Abuse - Denies Substance Abuse, 10/06/2023 Tobacco Never (less than 100 in lifetime) Tobacco Use:. Never Smokeless Tobacco Use:., 10/06/2023 Family History Family history is negative Immunizations Vaccine Date Status Comments influenza virus vaccine, inactivated - Not Given [facility] Comment on above: Result Comment: Elec tronically Signed By: THOMPSON DUMONT, Chris Beckwith\Date and Time Signed: 10/06/23 14:43 EST Evaluation + Plan note Note Date & Type Note Facility Evaluation + Plan note No data available for this section [facility] Discharge instructions Note Date & Type Note Facility Hospital Discharge instructions No data available for this section General Surgery [place] Progress note Note Date & Type Note Facility Progress note No data available for this section General [facility] [place] Summary Purpose Family History No Family History Records FoundNo Family History Records Found No data available for this section No Family History Records Found No data available for this section No Family History Records Found Advance Directives No Advanced Directives Records FoundNo Advanced Directives Records FoundNo Advanced Directives Records FoundNo Advanced Directives Records Found Additional Source Comments INFORMATION SOURCE (unrecogn ized section and content) DATE CREATED AUTHOR 12/18/2022 [facility] DATE CREATED AUTHOR AUTHOR'S ORGANIZ ATION 09/03/2023 [facility] EPIC DATE CREATED AUTHOR AUTHOR'S ORGANIZ ATION 10/27/2023 [facility] DATE CREATED AUTHOR AUTHOR'S ORGANIZ ATION 11/04/2023 [facility] Patient Care team informatio n (unrecognized section and content) Personnel Name: PAYAM TYLER MD Address: Address: [address] [place] [address] Personnel Name: PAYAM TYLER MD Address: Address: [address] [place] [address] FOR RECORDS PERTAINING TO PATIENTS WHO ARE [...] BE BASED ON THE PRIMARY CLINICAL RECORDS. [facility] [employer] [facility]. provides no warranty or guarantee of the accuracy or completeness of information in this document.
[2023-12-18 14:09] LABS: Age Gdln ACOG Testing Note (.); HPV Aptima Negative (Negative); IGP, Aptima HPV, rfx 16/18,45 Note (.)
== END 2023-12-14 21:34 | disposition home or self-care (01) ==
LOC: LAB 21:33
PROVIDERS: PCP Family Medicine; Visit Provider Obstetrics & Gynecology
DX: Z01.419 Encounter for gynecological examination (general) (routine) without abnormal findings (principal)
CPT/HCPCS: G0145

== ENCOUNTER 2024-01-01 08:46 | Outpatient (OUT) | payer MEDICAID, SELFPAY ==
--- NOTE | 2024-01-01 08:52 | MM_ITS ---
Patient Name: JENNY CAO MR#: [id number] : 1985 Exam Date: 01/01/2024 Ordering Doctor: DR Reilly Capone . RADIOLOGY REPORT PROCEDURE: MM TOMOSYNTHESIS SCREENING BI COMPARISON: None. INDICATIONS: Screening mammogram Calculator Name NCI Breast Cancer Risk Assessment Tool 5 Year Breast Cancer Risk 0.70% Lifetime Breast Cancer Risk 12.10% Personal Breast Cancer No Personal Ovarian Cancer No Treatments None Family Cancers Grandmother-paternal with brain cancer at age 80. LOCATION: [facility] BREAST COMPOSITION: There are scattered areas of fibroglandular density. FINDINGS: DIAGNOSTIC CATEGORY 2--BENIGN FINDING: Scattered benign-appearing calcifications are present. Scattered benign-appearing lymph nodes are present. RIGHT BREAST: No significant suspicious finding. LEFT BREAST: No significant suspicious finding. RECOMMENDATIONS: ROUTINE MAMMOGRAM AND CLINICAL EVALUATION IN 12 MONTHS. PLEASE NOTE: A NORMAL MAMMOGRAM DOES NOT EXCLUDE THE POSSIBILITY OF BREAST CANCER. A CLINICALLY SUSPICIOUS PALPABLE LUMP SHOULD BE BIOPSIED. Dictated by: Pollo Lugo MD on 01/01/2024 at 09:29 Approved by: Pollo Lugo MD on 01/01/2024 at 09:30
--- OUTSIDE RECORDS SUMMARY | 2024-01-01 09:04 | XMS_ITS | CCD ---
Author Organization [facility] Care Team Providers Care Floral Manager Name Role Phone DENISE KWOK Attending Unavailable NADORA, DR PAYAM Cabral Primary Care Unavailable GRECHNY ., ZAMZAM MENDEZ Consulting Unavailaarti e DENISE KWOK Admitting Unavailable JOHN ., DR PIERRE Attending Unavailable NADERER, DR PAYAM Cabral Primary Care Unavailable JOHN ., DR PIERRE Admitting Unavailable JOHN ., DR PIERRE Consulting Unavailable DENISE KWOK Admitting Unavailable DENISE KWOK Consulting Unavailable DENISE KWOK Attending Unavailable NAYELI, DR PAYAM Cabral Primary Care Unavailable NADEREMartha, DR PAYAM Cabral Primary Care Unavailable LOBO, RAVINDER Admitting Unavailable LOBORAVINDER Consulting Unavailable LOBO, RAVINDER Attending Unavailable BOONE SUNSHINE Consulting Unavailable PAYAM TYLER Primary Care Physician Chris Mcintosh Attending Unavailable NilChris spangler Admitting Unavailable PAYAM TYLER Referring Unavailable ARNALDO, Chris Thomas Attending Unavailable NILL, Chris Thomas Attending Unavailable NILL, Chris Thomas Attending Unavailable NADEREMartha, PAYAM Attending Unavailable IGNACIO LOPEZ Attending Unavailable Allergies Allergy Classification Reported Allergen(s) Allergy Type Date of Onset Reaction(s) Facility (1 source) No Known Medication Allergies; Translations: [No Known Medication Allergies] Propensity to adverse reactions (disorder) [facility] Repository Medications Current Medications Medication Drug Class(es) Dates Sig (Normalized) Sig (Original) fluticasone propionate 0.05 mg/actuat metered dose nasal spray (2 sources) Corticosteroid Start: 09-16-2023 Flonase 0.05 mg/inh [place] 1 spray(s), Nasal, BID, Refill(s) 0 Start [...] neck Your Care Team Attending Physician - ARNALDO DUMONT, Chris Thomas Primary Care Physician - PAYAM TYLER MD This Is Your Medications List Contact prescribing physician if questions or concerns fluticasone nasal (Flonase 0.05 mg/inh [place]) Procedures Performed Excision of cyst (10/21/2023), Dilation and curettage, LEEP, Tubal ligation. Medications What How Much When Instructions Unchanged fluticasone nasal (Flonase 0.05 mg/ inh [place]) 1 Sprays Nasal Inhalation 2 times a [...] you for choosing us for your care. [facility] Ambulatory Visit Summary KEZIA JAUREGUI :1985 Visit Date:11/03/2023 Ambulatory Visit Instructions Your Diagnosis Epidermal cyst of neck Your Care Team Attending Physician - ARNALDO DUMONT, Chris Thomas Primary Care Physician - PAYAM TYLER MD This Is Your Medications List Contact prescribing physician if questions or concerns fluticasone nasal (Flonase 0.05 mg/inh [place]) Procedures Performed Excision of cyst (10/21/2023), Dilation and curettage, LEEP, Tubal ligation. Medications What How Much When Instructions Unchanged fluticasone nasal (Flonase 0.05 mg/ inh [place]) 1 Sprays Nasal Inhalation 2 times a [...] choosing us for your care. [facility] Mcmill[facility] General Surgery Office/Clini c Noteon 11-03-2023 General [...] LEEP, Tubal ligation. Medications Flonase 0.05 mg/inh [place], 1 spray(s), Nasal, BID Allergies No Known Allergies No Known Medication Allergies Social History Alcohol - Denies Alcohol Use, 10/06/2023 Substance Abuse - Denies Substance Abuse, 10/06/2023 Tobacco Never (less than 100 in lifetime) Tobacco Use:. Never Smokeless Tobacco Use:., 10/06/2023 Family History Family history is negative Immunizations Vaccine Date Status Comments influenza virus vaccine, inactivated - Not Given Patient Refuses Normal [facility] Comment on above: Result Comment: Elec tronically Signed By: ARNALDO DUMONT, Chris Francobr\Date and Time Signed: 11/03/23 14:55 EDT Pathology Noteon 10-27-2023 Pathology Note [id number] .00TIFF Normal [facility] Operative Reporton Operative Report [id number] .00TIFF Normal [facility] Martinez 10-21-2023 L Specimen: [id number] Received: 10/21/23 Status: MARIO Jaquez Num: [id number] Spec Type: Surgical Subm Dr: Chris Mcintosh MD FACS Tissues: A Soft Tissue/Surgical Margin-Other than Tumor,Mass,Lip or Angeline (EPIDERMAL CYST Procedures: HE, Gross/Micro L3 Age/ Patient Sex Location Account Attending Physician Kezia Jauregui 38/F LABELL [id number] Chris Mcintosh MD FACS SPEC NUM: [id number] RECD: 10/21/23 STATUS: MARIO JAQUEZ NUM: [id number] LINDA: 10/21/[address]: Chris Mcintosh MD FACS ENTERED: 10/21/[address] [facility] [address]: [facility],Lab SPEC TYPE: Surgical DEPT: NIYA BULL ORDERED: [...] in one cassette labeled A1. CPT Codes 31386 -------- -------- Specimen: [id number] Received: 10/21/23 Status: MARIO Gisele Num: [id number] Spec Type: Surgical Subm Dr: Chris Mcintosh MD FACS Tissues: A Soft Tissue/Surgical Margin-Other than Tumor,Mass,Lip or Angeline (EPIDERMAL CYST Procedures: MICHAEL, Gross/Micro L3 -------- Patient: Kezia Jauregui [id number] (Continued) -------- Signed (signature on file) Gerri Alberto MD 10/26/23 1421 [facility] Consent for Procedure/Surger yon 10-08-2023 Consent for Procedure/Surgery [id number] 1.00TIFF [facility] Facesheeton 10-07-2023 Facesheet [id number] .00TIFF [facility] Insurance Correspondenceon 0 10-07-2023 Insurance Correspondence [id number] 1.00TIFF [facility] Ambulatory Visit Summaryon 0 10-06-2023 Ambulatory Visit Summary KEZIA JAUREGUI Martha :1985 Visit Date:10/06/2023 Ambulatory Visit Instructions Your Care Team Attending Physician - ARNALDO DUMONT, Chris Thomas Primary Care Physician - NAYELI DUMONT, PAYAM Referring Physician - PAYAM TYLER MD This Is Your Medications List Contact prescribing physician if questions or concerns fluticasone nasal (Flonase 0.05 mg/inh [place]) Procedures Performed Dilation and curettage, LEEP, Tubal ligation. Discharge Vitals Heart Rate (Peripheral) 70 Respiratory Rate 16 Blood Pressure 126/86 Height 154.9 cm Height 61 in Weight 74.2 kg Weight 163.24 lb BMI 30.92 Medications What How Much When Instructions Unchanged fluticasone nasal (Flonase 0.05 mg/ inh [place]) 1 Sprays Nasal Inhalation 2 times a [...] you for choosing us for your care. Normal [facility] Physician Referralon 024 Physician Referral [id number]. 00TIFF Normal [facility] PAP ACOG PANEL 2: 30 to 65on 12-18-2022 . . Normal [facility] Comment on above: Result Comment: Perf ormed at: WB Performed By: #### [id number] #### [facility] [address] [address] [address] Thomas Steele Age Gdln ACOG Testing 30-65 Normal [facility] Comment on above: Performed By: #### [id number] #### [facility] [address] [address] [address] Thomas Steele DIAGNOSIS: Comment Normal [facility] Comment on above: Result Comment: NEGA TIVE FOR INTRAEPITHELIAL LESION OR MALIGNANCY. Performed at: WB Performed By: #### 4 [id number] #### [facility] [address] [address] [address] Thomas Steele HPV Aptima Positive Abnormal Negative [facility] Comment on above: Result Comment: This nucleic acid amplification test detects fourteen high-risk HPV types (16,18,31,33,35,39,45,51,52,56,58,59,66,68) without differentiation. Performed at: =G Performed By: #### 4 [id number] #### [facility] [address] [address] [address] Thomas Steele HPV Genotype 16 Negative Normal Negative [facility] Comment on above: Performed By: #### 4 [id number] #### [facility] [address] [address] [address] Thomas Steele HPV Genotype 18,45 Negative Normal Negative [facility] Comment on above: Performed By: #### 4 [id number] #### [facility] [address] [address] [address] Thomas Steele HPV Genotype Reflex Comment Normal [facility] Comment on above: Result Comment: Aristeo polk, see HPV Genotype results. Performed at: WB Performed By: #### 4 [id number] #### [facility] [address] [place] [address] Dr. Thomas Steele Methodology: Comment Normal [facility] Comment on above: Result Comment: This liquid based ThinPrep(R) pap test was screened with the use of an image guided system. Performed at: WB Performed By: #### 4 [id number] #### [facility] [address] [place] [address] Dr. Thomas Steele Note: Comment Normal [facility] Comment on above: Result Comment: The Pap smear is a screening test designed to aid in the detection of premalignant and malignant conditions of the uterine cervix. It is not a diagnostic procedure and should not be used as the sole means of detecting cervical cancer. Both false-positive and false-negative reports do occur. . Performed at: WB Performed By: #### 4 [id number] #### [facility] [address] [place] [address] Dr. Thomas Steele Performed by: Comment Normal [facility] Comment on above: Result Comment: Natalie Jung, Adz Worker (ASCP) Performed at: WB Performed By: #### 4 [id number] #### [facility] [address] [place] [address] Dr. Thomas Steele Specimen adequacy: Comment Normal [facility] Comment on above: Result Comment: Sati sfactory for evaluation. Endocervical and/or squamous metaplastic cells (endocervical component) are present. Performed at: WB Performed By: #### 4 [id number] #### [facility] [address] [place] [address] Dr. 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 Typing was confirmed by monoclonal antibody microscopic immunofluorescence. Performed By: #### V IRALCX #### [facility] [address] [place] [address] Dr. Thomas Steele CHLAMYDIA/GONOCOCCUS ERNESTO (SW AB/URINE/PAPon 10-22-2022 Chlamydia trachomatis, ERNESTO Negative Normal Negative [facility] Comment on above: Performed By: #### C T/NGNA #### [facility] [address] [address] [address] Thomas Steele Neisseria gonorrhoeae, ERNESTO Negative Normal Negative [facility] Comment on above: Performed By: #### C T/NGNA #### [facility] [address] [address] [address] Thomas Steele URon 10-19-2022 , QUAL Negative Normal NEGATIVE [facility] Comment on above: Performed By: #### P REGU #### [facility] [address] [address] [address] Thomas Steele WET PREPon 10-19-2022 CLUE CELLS SEEN Abnormal NONE SEEN [facility] Comment on above: Performed By: #### W P #### [facility] [address] [place] [address] Dr. Thomas Steele FUNGAL ELEMENTS NONE SEEN Normal NONE SEEN [facility] Comment on above: Performed By: #### W P #### [facility] [address] [place] [address] Dr. Thomas Steele RBC -WET PREP RARE Abnormal NONE SEEN [facility] Comment on above: Performed By: #### W P #### [facility] [address] [place] [address] Dr. Thomas Steele TRICHOMONAS NONE SEEN Normal NONE SEEN [facility] Comment on above: Performed By: #### W P #### [facility] [address] [place] [address] Dr. Thomas Steele WBC- WET PREP FEW Abnormal NONE SEEN [facility] Comment on above: Performed By: #### W P #### [facility] [address] [address] [address] Thomas Steele WET PREP BACTERIA MODERATE Abnormal NONE SEEN [facility] Comment on above: Performed By: #### W P #### [facility] [address] [place] [address] Dr. Thomas Steele XR ANKLE RT MIN [...] by: BOONE SUNSHINE Date: 2022-02-01 03:04 Normal [facility] Vital Signs Date Time Vital Sign Value Performing Clinician Carleen álvarez 10-06-2023 14:17-0500 Blood Pressure Location Chris MCINTOSH [facility] 10-06-2023 14:17-0500 Diastolic blood pressure 86 mm[Hg] Chris MCINTOSH [facility] 10-06-2023 14:17-0500 Heart rate 70 /min Chris MCINTOSH [facility] 10-06-2023 14:17-0500 Respiratory rate 16 /min Chris MCINTOSH [facility] 10-06-2023 14:17-0500 Systolic blood pressure 126 mm[Hg] Chris MCINTOSH [facility] Encounters Encounter Date Encounter Type Care Provider Facility Start: 12-14-2023 End: 12-14-2023 ambulatory IGNACIO LOPEZ Not Available Start: 11-03-2023 End: 11-04-2023 ambulatory Chris MCINTOSH Facility:[facility] Start: 11-03-2023 End: 11-03-2023 Patient encounter procedure Chris MCINTOSH General [facility] [place] Start: 10-21-2023 End: 10-22-2023 ambulatory Chris Mcintosh Facility:[facility] Start: 10-06-2023 End: 10-07-2023 ambulatory PAYAM TYLER Facility:[facility] Start: 10-06-2023 End: 10-06-2023 Patient encounter procedure Chris Thomas ARNALDO General Surgery [place] Start: 09-03-2023 ambulatory PAYAM TYLER Facility:[facility] Start: 09-02-2023 End: 09-02-2023 ambulatory PAYAM TYLER Not Available Start: 12-09-2022 End: 12-09-[address] IGNACIO LOPEZ . Facility:[facility] Start: 10-20-2022 End: 10-20-2022 ambulatory DENISE KWOK Facility:[facility] Start: 10-19-2022 End: 10-19-2022 ambulatory DENISE KWOK Facility:[facility] Start: 02-01-2022 End: 02-01-[address] PAYAM TYLER Facility:[facility] Procedures Date Procedure Procedure Detail Performing Clinician Start: 10-21-2023 Excision of cyst Nestordorene crys MCINTOSH Comment on above: epidermal Dilation and curettage Johnnie MCINTOSH Ligation of fallopian tube Max OLIVERCrys Loop electrosurgical excision procedure Chris MCINTOSH Immunizations Immunization Date Immunization Notes Care Provider Fa ashley NEGATED: Highlighted row has not occurred!10-06-2023 influenza virus vaccine, unspecified formulation Chris MCINTOSH [facility] Payers Date Payer Category Payer Self-pay 2022 Medicaid [id number] 1985 Unknown [id number] 2.16.84 [id number] 1985 Unknown [id number] 2.16.84 [id number] 1985 Unknown [id number] 2.16.84 [id number] 1985 Unknown [id number] 2.16.84 [id number] 1985 Unknown [id number] 2.16.8 [id number] 1985 Unknown [id number] 2.16.8 [id number] 1985 Unknown [id number] 2.16.8 [id number] 1985 Unknown [id number] 2.16.84 [id number] 1985 Unknown [id number] 2.16.84 [id number] 1959 Unknown [id number] Unknown [id number] 2.16.8 [id number] Social History Date Type Detail Facility Start: 10-06-2023 Tobacco smoking status Never s moked tobacco (finding) [facility] Tobacco smoking status Never Gener al [facility] Sex Assigned At Female [facility] Functional Status Date Assessment Result Facility 10-06-2023 Functional Status N/A General [facility] Clinical Note 10-06-2023 Note Date & Type [...] plan excisional biopsy under local anesthesia at [facility], informed consent obtained. Follow-up No qualifying data available Problem List/Past Medical History Ongoing Allergic rhinitis BMI 30.0-30.9,adult Epidermal cyst of neck Obesity Sebaceous cyst Historical No qualifying data Procedure/Surgical History Dilation and curettage, LEEP, Tubal ligation. Medications Flonase 0.05 mg/inh [place], 1 spray(s), Nasal, BID Allergies No Known Allergies No Known Medication Allergies Social History Alcohol - Denies Alcohol Use, 10/06/2023 Substance Abuse - Denies Substance Abuse, 10/06/2023 Tobacco Never (less than 100 in lifetime) Tobacco Use:. Never Smokeless Tobacco Use:., 10/06/2023 Family History Family history is negative Immunizations Vaccine Date Status Comments influenza virus vaccine, inactivated - Not Given Patient Refuses [facility] Comment on above: Result Comment: Elec tronically Signed By: ARNALDO DUMONT, Chris Beckwith\Date and Time Signed: 10/06/23 14:43 EST Evaluation + Plan note Note Date & Type Note Facility Evaluation + Plan note No data available for this section [facility] Discharge instructions Note Date & Type Note Facility Hospital Discharge instructions No data available for this section General [facility] Progress note Note Date & Type Note Facility Progress note No data available for this section General Surgery [place] Summary Purpose Family History No Family History Records Found No data available for this section No Family History Records Found No data available for this section No Family History Records FoundNo Family History Records Found Advance Directives No Advanced Directives Records FoundNo Advanced Directives Records FoundNo Advanced Directives Records FoundNo Advanced Directives Records Found Additional Source Comments INFORMATION SOURCE (unrecogn ized section and content) DATE CREATED AUTHOR 12/18/2022 [facility] DATE CREATED AUTHOR AUTHOR'S ORGANIZ ATION 10/27/2023 [facility] DATE CREATED AUTHOR AUTHOR'S ORGANIZ ATION 11/04/2023 [facility] DATE CREATED AUTHOR AUTHOR'S ORGANIZ ATION 12/14/2023 [facility] dical Specialists [facility] Patient Care team informatio n (unrecognized section and content) Personnel Name: PAYAM TYLER MD Address: Address: [facility] [address] [id number] Personnel Name: PAYAM TYLER MD Address: Address: [address] FOR RECORDS PERTAINING TO PATIENTS WHO ARE [...] BE BASED ON THE PRIMARY CLINICAL RECORDS. [facility]. provides no warranty or guarantee of the accuracy or completeness of information in this document.
== END 2024-01-01 08:47 | disposition home or self-care (01) ==
LOC: MAMMO 08:46
PROVIDERS: PCP Family Medicine; Visit Provider Obstetrics & Gynecology
DX: Z12.31 Encounter for screening mammogram for malignant neoplasm of breast (principal); Z80.8 Family history of malignant neoplasm of other organs or systems
CPT/HCPCS: 77063; 77067

== ENCOUNTER 2024-08-01 22:03 | Outpatient (REF) | payer MEDICAID, SELFPAY ==
--- OUTSIDE RECORDS SUMMARY | 2024-08-01 22:07 | XMS_ITS | CCD ---
Author Organization [facility] Care Team Providers Care Blaster Helper Name Role Phone DENISE KWOK Attending Unavailable NADORA, DR PAYAM Cabral Primary Care Unavailable GRECHNY ., ZAMZAM MENDEZ Consulting Unavailaarti e DENISE KWOK Admitting Unavailable JOHN ., DR PIERRE Attending Unavailable NADERER, DR PAYAM Cabral Primary Care Unavailable JOHN ., DR PIERRE Admitting Unavailable JOHN ., DR PIERRE Consulting Unavailable DENISE KWOK Admitting Unavailable DENISE KWOK Consulting Unavailable DENISE KWOK Attending Unavailable NADERER, DR PAYAM Cabral Primary Care Unavailable NADERER, DR PAYAM Cabral Primary Care Unavailable RAVINDER DIAMOND Admitting Unavailable RAVINDER DIAMOND Consulting Unavailable LOBO, RAVINDER Attending Unavailable BOONE SUNSHINE Consulting Unavailable PAYAM TYLER Primary Care Physician Chris Mcintosh Attending Unavailable NilChris spangler Admitting Unavailable PAYAM TYLER Referring Unavailable Chris MCINTOSH Attending Unavailable NILL, Chris Thomas Attending Unavailable NILL, Chris Thomas Attending Unavailable NADERERPAYAM Attending Unavailable JOHNIGNACIO ORTEGA Attending Unavailable Allergies Allergy Classification Reported Allergen(s) Allergy Type Date of Onset Reaction(s) Facility (1 source) No Known Medication Allergies; Translations: [No Known Medication Allergies] Propensity to adverse reactions (disorder) [facility] Repository Medications Current Medications Medication Drug Class(es) Dates Sig (Normalized) Sig (Original) fluticasone propionate 0.05 mg/actuat metered dose nasal spray (2 sources) Corticosteroid Start: 09-16-2023 Flonase 0.05 mg/inh [place]a 1 spray(s), Nasal, BID, Refill(s) 0 Start [...] Reference Range Facility Ambulatory Visit Summaryon 0 3- Ambulatory Visit Summary KEZIA JAUREGUI :1985 Visit Date:11/03/2023 Ambulatory Visit Instructions Your Diagnosis Epidermal cyst of neck Your Care Team Attending Physician - ARNALDO DUMONT, Chris Thomas Primary Care Physician - PAYAM TYLER MD This Is Your Medications List Contact prescribing physician if questions or concerns fluticasone nasal (Flonase 0.05 mg/inh Mesa) Procedures Performed Excision of cyst (10/21/2023), Dilation and curettage, LEEP, Tubal ligation. Medications What How Much When Instructions Unchanged fluticasone nasal (Flonase 0.05 mg/ inh Mes[place]) 1 Sprays Nasal Inhalation 2 times a [...] you for choosing us for your care. [facility] Ambulatory Visit Summary KEZIA JAUREGUI :1985 Visit Date:11/03/2023 Ambulatory Visit Instructions Your Diagnosis Epidermal cyst of neck Your Care Team Attending Physician - ARNALDO DUMONT, Chris Thomas Primary Care Physician - PAYAM TYLER MD This Is Your Medications List Contact prescribing physician if questions or concerns fluticasone nasal (Flonase 0.05 mg/inh Mesa) Procedures Performed Excision of cyst (10/21/2023), Dilation and curettage, LEEP, Tubal ligation. Medications What How Much When Instructions Unchanged fluticasone nasal (Flonase 0.05 mg/ inh Mesa) 1 Sprays Nasal Inhalation 2 times a [...] LEEP, Tubal ligation. Medications Flonase 0.05 mg/inh Mesa, 1 spray(s), Nasal, BID Allergies No Known Allergies No Known Medication Allergies Social History Alcohol - Denies Alcohol Use, 10/06/2023 Substance Abuse - Denies Substance Abuse, 10/06/2023 Tobacco Never (less than 100 in lifetime) Tobacco Use:. Never Smokeless Tobacco Use:., 10/06/2023 Family History Family history is negative Immunizations Vaccine Date Status Comments influenza virus vaccine, inactivated - Not Given Patient Refuses Normal [facility] Comment on above: Result Comment: Elec tronically Signed By: ARNALDO DUMONT, Chris Francobr\Date and Time Signed: 11/03/23 14:55 EDT Pathology Noteon 10-27-2023 Pathology Note [id number] .00TIFF Normal [facility] Operative Reporton Operative Report [id number] .00TIFF Normal [facility] [place] 10-21-2023 L Specimen: [id number] Received: 10/21/23 Status: MARIO Jaquez Num: [id number] Spec Type: Surgical Subm Dr: Chris Mcintosh MD FACS Tissues: A Soft Tissue/Surgical Margin-Other than Tumor,Mass,Lip or Angeline (EPIDERMAL CYST Procedures: HE, Gross/Micro L3 Age/ Patient Sex Location Account Attending Physician Kezia Jauregui 38/F [facility] [id number] Chris Mcintosh MD FACS SPEC NUM: [id number] RECD: 10/21/23 STATUS: MARIO REObi NUM: [id number] LINDA: 10/21/[address]: Chris Mcintosh MD FACS ENTERED: 10/21/23 [facility] DR: Anabela Mcfadden SPEC TYPE: Surgical DEPT: [...] in one cassette labeled A1. CPT Codes 29124 -------- -------- Specimen: [id number] Received: 10/21/23 Status: MARIO Gisele Num: [id number] Spec Type: Surgical Subm Dr: Chris Mcintosh MD FACS Tissues: A Soft Tissue/Surgical Margin-Other than Tumor,Mass,Lip or Angeline (EPIDERMAL CYST Procedures: Viviana RODRIGUEZ/Micro L3 -------- Patient: Kezia Jaurgeui [id number] (Continued) -------- Signed (signature on file) Gerri Alberto MD 10/26/23 1421 [facility] Consent for Procedure/Surger yon 10-08-2023 Consent for Procedure/Surgery [id number]# 1.00TIFF [facility] Facesheeton 10-07-2023 Facesheet [id number]#1 .00TIFF [facility] Insurance Correspondenceon 0 10-07-2023 Insurance Correspondence [id number]# 1.00TIFF [facility] Ambulatory Visit Summaryon 0 10-06-2023 Ambulatory Visit Summary NASHAMAKEZIA R :1985 Visit Date:10/06/2023 Ambulatory Visit Instructions Your Care Team Attending Physician - ARNALDO DUMONT, Chris Thomas Primary Care Physician - NAYELI DUMONT, PAYAM Referring Physician - PAYAM TYLER MD This Is Your Medications List Contact prescribing physician if questions or concerns fluticasone nasal (Flonase 0.05 mg/inh Mesa) Procedures Performed Dilation and curettage, LEEP, Tubal ligation. Discharge Vitals Heart Rate (Peripheral) 70 Respiratory Rate 16 Blood Pressure 126/86 Height 154.9 cm Height 61 in Weight 74.2 kg Weight 163.24 lb BMI 30.92 Medications What How Much When Instructions Unchanged fluticasone nasal (Flonase 0.05 mg/ inh [place]) 1 Sprays Nasal Inhalation 2 times a [...] for choosing us for your care. Normal [facility] Physician Referralon 024 Physician Referral [id number]#1. 00TIFF Normal [facility] PAP ACOG PANEL 2: 30 to 65on 12-18-2022 . . Normal [facility] Comment on above: Result Comment: Perf ormed at: WB Performed By: #### [id number] #### [facility] [address] [address] [address] Thomas Steele Age Gdln ACOG Testing 30-65 Normal [facility] Comment on above: Performed By: #### 4 [id number] #### [facility] [address] [address] [address] Thomas Steele DIAGNOSIS: Comment Normal [facility] Comment on above: Result Comment: NEGA TIVE FOR INTRAEPITHELIAL LESION OR MALIGNANCY. Performed at: WB Performed By: #### 4 [id number] #### [facility] [address] [address] [address] Thomas Steele HPV Aptima Positive Abnormal Negative [facility] Comment on above: Result Comment: This nucleic acid amplification test detects fourteen high-risk HPV types (16,18,31,33,35,39,45,51,52,56,58,59,66,68) without differentiation. Performed at: =G Performed By: #### 4 [id number] #### [facility] [address] [address] [address] Thomas Steele HPV Genotype 16 Negative Normal Negative [facility] Comment on above: Performed By: #### 4 [id number] #### [facility] [address] [address] [address] Thomas Steele HPV Genotype 18,45 Negative Normal Negative [facility] Comment on above: Performed By: #### 4 [id number] #### [facility] [address] [address] [address] Thomas Steele HPV Genotype Reflex Comment Normal [facility] Comment on above: Result Comment: Aristeo polk, see HPV Genotype results. Performed at: WB Performed By: #### 4 [id number] #### [facility] [address] [place] [address] Dr. Thomas Steele Methodology: Comment Normal [facility] Comment on above: Result Comment: This liquid based ThinPrep(R) pap test was screened with the use of an image guided system. Performed at: WB Performed By: #### 4 [id number] #### [facility] [address] [place] [address] Dr. Thomas Steele Note: Comment Normal [facility] Comment on above: Result Comment: The Pap smear is a screening test designed to aid in the detection of premalignant and malignant conditions of the uterine cervix. It is not a diagnostic procedure and should not be used as the sole means of detecting cervical cancer. Both false-positive and false-negative reports do occur. . Performed at: WB Performed By: #### [id number] #### [facility] [address] [place] [address] Dr. Thomas Steele Performed by: Comment Normal [facility] Comment on above: Result Comment: Natalie Jung, Fundraising Sale Representative (ASCP) Performed at: WB Performed By: #### 4 [id number] #### [facility] [address] [place] [address] Dr. Thomas Steele Specimen adequacy: Comment Normal [facility] Comment on above: Result Comment: Sati sfactory for evaluation. Endocervical and/or squamous metaplastic cells (endocervical component) are present. Performed at: WB Performed By: #### 4 [id number] #### [facility] [address] [place] [address] Dr. 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 Typing was confirmed by monoclonal antibody microscopic immunofluorescence. Performed By: #### V IRALCX #### [facility] [address] [place] [address] Dr. Thomas Steele CHLAMYDIA/GONOCOCCUS ERNESTO (SW AB/URINE/PAPon 10-22-2022 Chlamydia trachomatis, ERNESTO Negative Normal Negative [facility] Comment on above: Performed By: #### C T/NGNA #### [facility] [address] [address] [address] Thomas Steele Neisseria gonorrhoeae, ERNESTO Negative Normal Negative [facility] Comment on above: Performed By: #### C T/NGNA #### [facility] [address] [address] [address] Thomas Steele URon 10-19-2022 , QUAL Negative Normal NEGATIVE [facility] Comment on above: Performed By: #### P REGU #### [facility] [address] [address] [address] Thomas Steele WET PREPon 10-19-2022 CLUE CELLS SEEN Abnormal NONE SEEN [facility] Comment on above: Performed By: #### W P #### [facility] [address] [place] [address] Dr. Thomas Steele FUNGAL ELEMENTS NONE SEEN Normal NONE SEEN The [facility] Comment on above: Performed By: #### W P #### [facility] [address] [address] [address] Thomas Steele RBC -WET PREP RARE Abnormal NONE SEEN The [facility] Comment on above: Performed By: #### W P #### [facility] [address] [place] [address] Dr. Thomas Steele TRICHOMONAS NONE SEEN Normal NONE SEEN [facility] Comment on above: Performed By: #### W P #### [facility] [address] [address] [address] Thomas Steele WBC- WET PREP FEW Abnormal NONE SEEN The [facility] Comment on above: Performed By: #### W P #### [facility] [address] [address] [address] Thomas Steele WET PREP BACTERIA MODERATE Abnormal NONE SEEN The [facility] Comment on above: Performed By: #### W P #### [facility] [address] [place] [address] Dr. Thomas Steele XR ANKLE RT MIN [...] by: BOONE SUNSHINE Date: 2022-02-01 03:04 Normal [facility] Vital Signs Date Time Vital Sign Value Performing Clinician Carleen álvarez 10-06-2023 14:17-0500 Blood Pressure Location Chris MCINTOSH [facility] 10-06-2023 14:17-0500 Diastolic blood pressure 86 mm[Hg] Chris MCINTOSH [facility] 10-06-2023 14:17-0500 Heart rate 70 /min Chris MCINTOSH [facility] 10-06-2023 14:17-0500 Respiratory rate 16 /min Chris MCINTOSH [facility] 10-06-2023 14:17-0500 Systolic blood pressure 126 mm[Hg] Chris MCINTOSH [facility] Encounters Encounter Date Encounter Type Care Provider Facility Start: 12-14-2023 End: 12-14-2023 ambulatory IGNACIO LOPEZ Not Available Start: 11-03-2023 End: 11-04-2023 [facility]: 11-03-2023 End: 11-03-2023 Patient encounter procedure Chris MCINTOSH [facility] Start: 10-21-2023 End: 10-22-2023 ambulatory Chris Mcintosh Facility:[facility] Start: 10-06-2023 End: 10-07-2023 ambulatory PAYAM TYLER Facility:[facility] Start: 10-06-2023 End: 10-06-2023 Patient encounter procedure Chris MCINTOSH General [facility] Start: 09-03-2023 ambulatory PAYAM TYELR Facility:[facility] Start: 09-02-2023 End: 09-02-2023 ambulatory [...] curettage Johnnie MCINTOSH Ligation of fallopian tube M jerica ARNALDO Loop electrosurgical excision procedure Chris MCINTOSH Immunizations Immunization Date Immunization Notes Care Provider Fa cility NEGATED: Highlighted row has not occurred!10-06-2023 influenza virus vaccine, unspecified formulation Chris MCINTOSH [facility] Payers Date Payer Category Payer Self-pay 2022 Medicaid [id number] 1985 Unknown [id number] 2.16.84 [id number] 1985 Unknown [id number] 2.16.84 [id number] 1985 Unknown [id number] 2.16.84 [id number] 1985 Unknown [id number] 2.16.84 [id number] 1985 Unknown [id number] 2.16.8 [id number] 1985 Unknown [id number] 2.16.8 [id number] 1985 Unknown [id number] 2.16.8 [id number] 1985 Unknown [id number] 2.16.84 [id number] 1985 Unknown [id number] 2.16.84 [id number] 1961 Unknown [id number] Unknown [id number] 2.16.8 [id number] Social History Date Type Detail Facility Start: 10-06-2023 Tobacco smoking status Never s moked tobacco (finding) [facility] Tobacco smoking status Never Gener al [facility] Sex Assigned At Female [facility] Functional Status Date Assessment Result Facility 10-06-2023 Functional Status N/A [facility] Clinical Note 10-06-2023 Note Date & Type [...] plan excisional biopsy under local anesthesia at [facility], informed consent obtained. Follow-up No qualifying data available Problem List/Past Medical History Ongoing Allergic rhinitis BMI 30.0-30.9,adult Epidermal cyst of neck Obesity Sebaceous cyst Historical No qualifying data Procedure/Surgical History Dilation and curettage, LEEP, Tubal ligation. Medications Flonase 0.05 mg/inh Mesa, 1 spray(s), Nasal, BID Allergies No Known Allergies No Known Medication Allergies Social History Alcohol - Denies Alcohol Use, 10/06/2023 Substance Abuse - Denies Substance Abuse, 10/06/2023 Tobacco Never (less than 100 in lifetime) Tobacco Use:. Never Smokeless Tobacco Use:., 10/06/2023 Family History Family history is negative Immunizations Vaccine Date Status Comments influenza virus vaccine, inactivated - Not Given Patient Refuses [facility] Comment on above: Result Comment: Elec tronically [...] available for this section [facility] Summary Purpose Family History No Family History [...] and content) DATE CREATED AUTHOR 12/18/2022 [facility] DATE CREATED AUTHOR AUTHOR'S ORGANIZ ATION 10/27/2023 [facility] DATE CREATED AUTHOR AUTHOR'S ORGANIZ ATION 11/04/2023 [facility] DATE CREATED AUTHOR AUTHOR'S ORGANIZ ATION 12/14/2023 [facility] Patient Care team informatio n (unrecognized section and content) Personnel Name: PAYAM TYLER MD Address: Address: [facility] [place] [address] Personnel Name: PAYAM TYLER MD Address: Address: [facility] HERIBERTO Brooke [address] FOR RECORDS PERTAINING TO PATIENTS WHO [...] BE BASED ON THE PRIMARY CLINICAL RECORDS. [facility]. provides no warranty or guarantee of the accuracy or completeness of information in this document.
== END 2024-08-01 22:04 | disposition home or self-care (01) ==
LOC: LAB 22:03
PROVIDERS: PCP Family Medicine; Visit Provider Physician Assistant
DX: N64.2 Atrophy of breast (principal)
CPT/HCPCS: 87070; 87075; 87150

== ENCOUNTER 2024-08-05 10:29 | Outpatient (OUT) | payer MEDICAID, SELFPAY ==
--- NOTE | 2024-08-05 10:33 | US_ITS ---
Patient Name: JENYN CAO MR#: [id number] : 1985 Exam Date: 08/05/2024 Ordering Doctor: ZAMZAM Duncan . RADIOLOGY REPORT PROCEDURE: US BREAST LT COMPLETE COMPARISON: None. INDICATIONS: Nipple Discharge TECHNIQUE: Breast ultrasound was performed, with evaluation focusing only on specific areas of concern. FINDINGS: DIAGNOSTIC CATEGORY 1--NEGATIVE. Ultrasound of the nipple and retroareolar location demonstrates no ultrasound abnormality. No dilated ducts or mass. RECOMMENDATIONS: ROUTINE MAMMOGRAM AND CLINICAL EVALUATION IN 12 MONTHS. PLEASE NOTE: A NORMAL ULTRASOUND EXAMINATION DOES NOT EXCLUDE THE POSSIBILITY OF BREAST CANCER. A CLINICALLY SUSPICIOUS PALPABLE LUMP SHOULD BE BIOPSIED. Dictated by: Pollo Lugo MD on 08/05/2024 at 10:59 Approved by: Pollo Lugo MD on 08/05/2024 at 11:00
--- OUTSIDE RECORDS SUMMARY | 2024-08-05 10:37 | XMS_ITS | CCD ---
Author Organization [facility] Care Team Providers Care Clinical Office Technician Name Role Phone DENISE KWOK Attending Unavailable NADSANAZR, DR ASHISH Cabral Primary Care Unavailable GRECHNY ., ZAMZAM MENDEZ Consulting Unavailaarti e DENISE KWOK Admitting Unavailable JOHN ., DR PIERRE Attending Unavailable NADERER, DR ASHISH Cabral Primary Care Unavailable JOHN ., DR PIERRE Admitting Unavailable JOHN ., DR PIERRE Consulting Unavailable DENISE KWOK Admitting Unavailable DENISE KWOK Consulting Unavailable DENISE KWOK Attending Unavailable NADSANAZR, DR ASHISH Cabral Primary Care Unavailable NADERER, DR ASHISH Cabral Primary Care Unavailable LOBO, RAVINDER Admitting Unavailable LOBO, RAVINDER Consulting Unavailable LOBO, RAVINDER Attending Unavailable BOONE SUNSHINE Consulting Unavailable ASHISH TYLER Primary Care Physician [phone] Chris Mcintosh Attending Unavailable Chris Mcintosh Admitting Unavailable ASHISH TYLER Referring Unavailable Chris MCINTOSH Attending Unavailable THOMPSON, Chris Thomas Attending Unavailable THOMPSON, Chris Thomas Attending Unavailable Ashish Tyler MD Primary Care Provider ASHISH TYLER Attending Unavailable IGNACIO CAPONE Attending Unavailable NATALIE BHATTI Attending Unavailable Allergies Allergy Classification Reported Allergen(s) Allergy Type Date of Onset Reaction(s) Facility (1 source) No Known Medication Allergies; Translations: [No Known Medication Allergies] Propensity to adverse reactions (disorder) [facility] Repository Medications Current Medications Medication Drug Class(es) Dates Sig (Normalized) Sig (Original) cephalexin 500 mg oral capsule (2 sources) Cephalosporin Antibacterial Start: 08-01-2024 End: 08-08-2024 take 1 capsule by mouth in the morning, then take 1 capsule by mouth in the evening, then take 1 capsule by mouth at bedtime cephalexin (Keflex) 500 MG capsule Indications: Nipple discharge Take 1 capsule (500 mg) by mouth in the morning and 1 capsule (500 mg) in the evening and 1 capsule (500 mg) before bedtime. Do all this for 7 days. 21 capsule 08/01/2024 08/08/2024 Active Completed/Discontinued Medications Medication Drug Class(es) Dates Sig (Normalized) Sig (Original) acyclovir 800 mg oral tablet (3 sources) Herpesvirus Nucleoside Analog DNA Polymerase Inhibitor, Herpes Simplex Virus Nucleoside Analog DNA Polymerase Inhibitor, Herpes Zoster Virus Nucleoside Analog DNA Polymerase Inhibitor Start: 11-26-2023 End: 08-01-2024 take 1 tablet by mouth three times daily acyclovir (Zovirax) 800 MG tablet Indications: Encounter for follow-up examination after completed treatment for conditions other than malignant neoplasm TAKE 1 TABLET BY MOUTH THREE TIMES A DAY FOR 2 DAYS 6 tablet 2 11/26/2023 08/01/2024 Discontinued fluticasone propionate 0.05 mg/actuat metered dose nasal spray (5 sources) Corticosteroid Start: 12-14-2023 End: 08-01-2024 take 2 spray(s) nasal route once daily [facility] Fluticasone Propionate 50 MCG/ACT nasal spray Indications: Other seasonal allergic rhinitis , Allergic rhinitis SPRAY 2 SPRAYS IN EACH NOSTRIL DAILY 15.8 mL 6 12/14/2023 08/01/2024 Discontinued Start: 09-16-2023 Flonase 0.05 m g/inh [place] 1 spray(s), Nasal, BID, Refill(s) 0 Start Date: 09/16/23 Status: Ordered ibuprofen 800 mg oral tablet (3 sources) Nonsteroidal Anti-inflammatory Drug Start: 01-06-2023 End: 08-01-2024 take 1 tablet by mouth every six hours as needed for pain ibuprofen 800 MG tablet TAKE 1 TABLET BY MOUTH EVERY 6 HOURS NEEDED FOR PAIN WITH FOOD 01/06/2023 08/01/2024 Discontinued Problems Active Problems Problem Classification Problem Date Documented Date Episodic/Chronic Abdominal pain (4 sources) Pelvic and perineal pain; Translations: [PELVIC AND PERINEAL PAIN] Onset: 10-20-2022 Episodic Epilepsy; convulsions (3 sources) Seizure disorder; Translations: [Epilepsy, unspecified, not intractable, without status epilepticus] Onset: 09-02-2023 09-02-2023 Chronic Immunizations and screening for infectious disease (1 source) Encounter for screening for human papillomavirus (HPV); Translations: [ENC SCREENING HUMAN PAPILLOMAVIRUS] Onset: 12-13-2022 Episodic Inflammatory diseases of female pelvic organs (1 source) Acute vaginitis; Translations: [ACUTE VAGINITIS] Onset: 10-20-2022 Episodic Nonmalignant breast conditions (2 sources) Discharge from nipple; Translations: [Nipple discharge] 08-01-2024 Episodic Other female genital disorders (3 sources) [...] (2 sources) Sebaceous cyst of skin 09-16-2023 Viral infection (3 sources) Genital herpes simplex; Translations: [Herpesviral infection of urogenital system, unspecified] Onset: 09-02-2023 09-02-2023 Chronic Past or Other Problems Problem Classification Problem [...] [PAIN IN RIGHT ANKLE] Onset: 02-01-2022 Episodic Other skin disorders (3 sources) Sebaceous cyst of skin; Translations: [Sebaceous cyst] Onset: 09-02-2023 09-02-2023 Episodic Sprains and strains (1 source) Sprain of unspecified ligament of right ankle, initial encounter; Translations: [SPRAIN UNS LIGAMENT RT ANKLE INIT] Onset: 02-03-2022 Episodic Results Test Name Value Interpretation Reference Range Facility Cytology Cervical or vaginal smear or scraping studyOrdered By: Kaelyn Abreu on 12-14-[address] [facility] Ambulatory Visit Summaryon 0 11-03-2023 Ambulatory Visit Summary NASH KEZIA Thomas :1985 Visit Date:11/03/2023 Ambulatory Visit Instructions Your Diagnosis Epidermal cyst of neck Your Care Team Attending Physician - THOMPSON DUMONT, Chris Thomas Primary Care Physician - ASHISH TYLER MD This Is Your Medications List Contact prescribing physician if questions or concerns fluticasone nasal (Flonase 0.05 mg/inh Afton) Procedures Performed Excision of cyst (10/21/2023), Dilation and curettage, LEEP, Tubal ligation. Medications What How Much When Instructions Unchanged fluticasone nasal (Flonase 0.05 mg/ inh [place]) 1 Sprays Nasal Inhalation 2 times a [...] you for choosing us for your care. [facility] Ambulatory Visit Summary NASH KEZIA Thomas :1985 Visit Date:11/03/2023 Ambulatory Visit Instructions Your Diagnosis Epidermal cyst of neck Your Care Team Attending Physician - THOMPSON DUMONT, Chris Thomas Primary Care Physician - ASHISH TYLER MD This Is Your Medications List Contact prescribing physician if questions or concerns fluticasone nasal (Flonase 0.05 mg/inh [place]fton) Procedures Performed Excision of cyst (10/21/2023), Dilation and curettage, LEEP, Tubal ligation. Medications What How Much When Instructions Unchanged fluticasone nasal (Flonase 0.05 mg/ inh Afton) 1 Sprays Nasal Inhalation 2 times a [...] for choosing us for your care. Normal [facility] General Surgery Office/Clini c Noteon 11-03-2023 General [...] LEEP, Tubal ligation. Medications Flonase 0.05 mg/inh Afton, 1 spray(s), Nasal, BID Allergies No Known Allergies No Known Medication Allergies Social History Alcohol - Denies Alcohol Use, 10/06/2023 Substance Abuse - Denies Substance Abuse, 10/06/2023 Tobacco Never (less than 100 in lifetime) Tobacco Use:. Never Smokeless Tobacco Use:., 10/06/2023 Family History Family history is negative Immunizations Vaccine Date Status Comments influenza virus vaccine, inactivated - Not Given Patient Refuses Normal [facility] Comment on above: Result Comment: Elec tronically Signed By: THOMPSON DUMONT, Chris Beckwith\Date and Time Signed: 11/03/23 14:55 EDT Pathology Noteon 10-27-2023 Pathology Note [id number] .00TIFF Normal [facility] Operative Reporton Operative Report [id number] .00TIFF Normal [facility] Martinez 10-21-2023 L Specimen: [id number] Received: 10/21/23 Status: MARIO Jaquez Num: [id number] Spec Type: Surgical Subm Dr: Chris Mcintosh MD FACS Tissues: A Soft Tissue/Surgical Margin-Other than Tumor,Mass,Lip or Angeline (EPIDERMAL CYST Procedures: HE, Gross/Micro L3 Age/ Patient Sex Location Account Attending Physician Kezia Jauregui 38/F [facility] [id number] Chris Mcintosh MD FACS SPEC NUM: [id number] RECD: 10/21/23 STATUS: MARIO JAQUEZ NUM: [id number] LINDA: 10/21/[address] [facility] DR: Chris Mcintosh MD FACS ENTERED: 10/21/[address] [facility] [address]: Anabela Mcfadden SPEC TYPE: Surgical DEPT: [...] in one cassette labeled A1. CPT Codes 82448 -------- -------- Specimen: [id number] Received: 10/21/23 Status: SOUT Req Num: [id number] Spec Type: Surgical Subm Dr: Chris Mcintosh MD FACS Tissues: A Soft Tissue/Surgical Margin-Other than Tumor,Mass,Lip or Angeline (EPIDERMAL CYST Procedures: HE, Gross/Micro L3 -------- Patient: Kezia Jauregui [id number] (Continued) -------- Signed (signature on file) Gerri Alberto MD 10/26/23 1421 [facility] Consent for Procedure/Surger yon 10-08-2023 Consent for Procedure/Surgery [id number]# 1.00TIFF [facility] Facesheeton 10-07-2023 Facesheet [id number] .00TIFF [facility] Insurance Correspondenceon 0 10-07-2023 Insurance Correspondence [id number]# 1.00TIFF [facility] Ambulatory Visit Summaryon 0 10-06-2023 Ambulatory Visit Summary KEZIA JAUREGUI :1985 Visit Date:10/06/2023 Ambulatory Visit Instructions Your Care Team Attending Physician - THOMPSON DUMONT, Chris Thomas Primary Care Physician - NAYELI DUMONT, ASHISH Referring Physician - NAYELI DUMONT, ASHISH This Is Your Medications List Contact prescribing physician if questions or concerns fluticasone nasal (Flonase 0.05 mg/inh Afton) Procedures Performed Dilation and curettage, LEEP, Tubal ligation. Discharge Vitals Heart Rate (Peripheral) 70 Respiratory Rate 16 Blood Pressure 126/86 Height 154.9 cm Height 61 in Weight 74.2 kg Weight 163.24 lb BMI 30.92 Medications What How Much When Instructions Unchanged fluticasone nasal (Flonase 0.05 mg/ inh [place]) 1 Sprays Nasal Inhalation 2 times a [...] for choosing us for your care. Normal [facility] Physician Referralon 024 Physician Referral [id number]. 00TIFF Normal [facility] PAP ACOG PANEL 2: 30 to 65on 12-18-2022 . . Normal [facility] Comment on above: Result Comment: Perf ormed at: WB Performed By: #### [id number] #### [facility] [address] [place] [address] Dr. Thomas Steeel Age Gdln ACOG Testing - Normal [facility] Comment on above: Performed By: #### 4 [id number] #### [facility] [address] [place] [address] Dr. Thomas Steele DIAGNOSIS: Comment Normal [facility] Comment on above: Result Comment: NEGA TIVE FOR INTRAEPITHELIAL LESION OR MALIGNANCY. Performed at: WB Performed By: #### 4 [id number] #### [facility] [address] [address] [address] Thomas Steele HPV Aptima Positive Abnormal Negative [facility] Comment on above: Result Comment: This nucleic acid amplification test detects fourteen high-risk HPV types (16,18,31,33,35,39,45,51,52,56,58,59,66,68) without differentiation. Performed at: =G Performed By: #### 4 [id number] #### [facility] [address] [place] [address] Dr. Thomas Steele HPV Genotype 16 Negative Normal Negative [facility] Comment on above: Performed By: #### 4 [id number] #### [facility] [address] [place] [address] Dr. Thomas Steele HPV Genotype 18,45 Negative Normal Negative [facility] Comment on above: Performed By: #### 4 [id number] #### [facility] [address] [place] [address] Dr. Thomas Steele HPV Genotype Reflex Comment Normal [facility] Comment on above: Result Comment: Aristeo polk, see HPV Genotype results. Performed at: WB Performed By: #### 4 [id number] #### [facility] [address] [place] [address] Dr. Thomas Steele Methodology: Comment Normal [facility] Comment on above: Result Comment: This liquid based ThinPrep(R) pap test was screened with the use of an image guided system. Performed at: WB Performed By: #### 4 [id number] #### [facility] [address] [place] [address] Dr. Thomas Steele Note: Comment Normal [facility] Comment on above: Result Comment: The Pap smear is a screening test designed to aid in the detection of premalignant and malignant conditions of the uterine cervix. It is not a diagnostic procedure and should not be used as the sole means of detecting cervical cancer. Both false-positive and false-negative reports do occur. . Performed at: WB Performed By: #### 4 [id number] #### [facility] [address] [place] [address] Dr. Thomas Steele Performed by: Comment Normal [facility] Comment on above: Result Comment: Natalie Jung, Salesforce Administrator (ASCP) Performed at: WB Performed By: #### 4 [id number] #### [facility] [address] [place] [address] Dr. Thomas Steele Specimen adequacy: Comment Normal [facility] Comment on above: Result Comment: Sati sfactory for evaluation. Endocervical and/or squamous metaplastic cells (endocervical component) are present. Performed at: WB Performed By: #### 4 [id number] #### [facility] [address] [place] [address] Dr. Thomas Steele VIRAL CULTURE [facility] 10-15 Viral Culture, General Comment Abnormal [facility] Comment on above: Result Comment: Posi tive for Herpes simplex virus type-1. Typing was confirmed by monoclonal antibody microscopic immunofluorescence. Performed By: #### V IRALCX #### [facility] [address] [place] [address] Dr. Thomas Steele CHLAMYDIA/GONOCOCCUS ERNESTO (SW AB/URINE/PAPon 10-22-2022 Chlamydia trachomatis, ERNESTO Negative Normal Negative [facility] Comment on above: Performed By: #### C T/NGNA #### [facility] [address] [place] [address] Dr. Thomas Steele Neisseria gonorrhoeae, ERNESTO Negative Normal Negative [facility] Comment on above: Performed By: #### C T/NGNA #### [facility] [address] [place] [address] Dr. Thomas Steele URon 10-19-2022 , QUAL Negative Normal NEGATIVE [facility] Comment on above: Performed By: #### P REGU #### [facility] [address] [place] [address] Dr. Thomas Steele WET PREPon 10-19-2022 CLUE CELLS SEEN Abnormal NONE SEEN [facility] Comment on above: Performed By: #### W P #### [facility] [address] [place] [address] Dr. Thomas Steele FUNGAL ELEMENTS NONE SEEN Normal NONE SEEN [facility] Comment on above: Performed By: #### W P #### [facility] [address] [place] [address] Dr. Thomas Steele RBC -WET PREP RARE Abnormal NONE SEEN [facility] Comment on above: Performed By: #### W P #### [facility] [address] [place] [address] Dr. Thomas Steele TRICHOMONAS NONE SEEN Normal NONE SEEN [facility] Comment on above: Performed By: #### W P #### [facility] [address] [place] [address] Dr. Thomas Steele WBC- WET PREP FEW Abnormal NONE SEEN [facility] Comment on above: Performed By: #### W P #### [facility] [address] [place], [place] [address] Dr. Thomas Steele WET PREP BACTERIA MODERATE Abnormal NONE SEEN [facility] Comment on above: Performed By: #### W P #### [facility] [address] [place], [place] [address] Dr. Thomas Steele XR ANKLE RT MIN [...] by: BOONE SUNSHINE Date: 2022-02-01 03:04 Normal [facility] Vital Signs Date Time Vital Sign Value Performing Clinician Facility 08-01-2024 13:14-0500 Body mass index (BMI) [Ratio] 31.82 kg/m2 Natalie WYMAN Work Phone: [facility] 08-01-2024 13:14-0500 Body weight 76.39 kg Natalie WYMAN Work Phone: [facility] 08-01-2024 13:14-0500 Diastolic blood pressure 70 mm[Hg] Natalie WYMAN Work Phone: [facility] 08-01-2024 13:14-0500 Systolic blood pressure 100 mm[Hg] Natalie WYMAN Work Phone: [facility] 10-06-2023 14:17-0500 Blood Pressure Location Chris MCINTOSH [facility] 10-06-2023 14:17-0500 Diastolic blood pressure 86 mm[Hg] Chris MCINTOSH [facility] 10-06-2023 14:17-0500 Heart rate 70 /min Chris OLIVERL [facility] [place] 10-06-2023 14:17-0500 Respiratory rate 16 /min Chris NILL [facility] 10-06-2023 14:17-0500 Systolic blood pressure 126 mm[Hg] Chris OLIVERL [facility] Encounters Encounter Date Encounter Type Care Provider Facility Start: 08-01-2024 End: 08-01-2024 Bamboo flowsheet Natalie WYMAN Work Phone: [facility] Start: 08-01-2024 End: 08-01-2024 Bamboo flowsheet Natalie WYMAN Work Phone: [facility] Start: 08-01-2024 End: 08-01-2024 Office outpatient visit 15 minutes Natalie WYMAN Work Phone: [facility] Comment on above: Nipple discharge Start: 08-01-2024 End: 08-01-2024 ambulatory NATALIE BHATTI Not Available Start: 12-14-2023 End: 12-14-2023 ambulatory IGNACIO CAPONE Not Available Start: 11-03-2023 End: 11-04-2023 ambulatory Chris R NILL Facility:[facility] Start: 11-03-2023 End: 11-03-2023 Patient encounter procedure Chris R NILL [facility] [place] Start: 10-21-2023 End: 10-22-2023 ambulatory Chris R Nill Facility:[facility] Start: 10-06-2023 End: 10-07-2023 ambulatory ASHISH TYLER Facility: [place] Start: 10-06-2023 End: 10-06-2023 Patient encounter procedure Chris R NILL [facility] Start: 09-03-2023 ambulatory ASHISH TYLER Facility:[facility] Start: 09-02-2023 End: 09-02-2023 ambulatory ASHISH TYLER Not Available Start: 12-09-2022 End: 12-09-[address] IGNACIO CAPONE . Facility:[facility] Start: 10-20-2022 End: 10-20-2022 ambulatory DENISE KWOK Facility:[facility] Start: 10-19-2022 End: 10-19-2022 ambulatory DENISE KWOK Facility:[facility] Start: 02-01-2022 End: 02-01-[address] ASHISH TYLER Facility:[facility] Procedures Date Procedure Procedure Detail Performing Clinician Start: 01-01-2024 Mammography Natalie WYMAN Work Phone: Start: 12-14-2023 Microscopic observat ion [Identifier] in Cervix by Cyto stain Natalie WYMAN Work Phone: Start: 12-14-2023 Cytp cerv/vag auto t hin layer prep mnl screen Ignacio Capone DO Work Phone: Start: 10-21-2023 Excision of cyst Michae l NILL Comment on above: epidermal Dilation and curettage Johnnie rodas NILL Ligation of fallopian tube M jerica NILL Loop electrosurgical excision procedure Chris NILYoan Plan of Treatment Date Care Activity Detail Author Start: 12-13-2028 Screening for malign ant neoplasm of cervix [facility] Start: 12-31-2024 Screening for malign ant neoplasm of breast Mammogram [facility] Start: 12-19-2024 End: 12-19-2024 Patient encounter procedure 12/19/2024 8:30 AM EDT Office Visit [facility] [address] [place] [address] Ignacio Capone, DO [address] [place] [address] [facility] Start: 08-01-2024 End: 10-02-2025 US Breast - left Left breast US complete Imaging Routine Nipple discharge Expected: 08/01/2024 (Approximate), Expires: 10/02/2025 [facility] Work Phone: Comment on above: Expected: 08/01/2024 (Approximate), Expires: 10/02/2025 Start: 08-01-2024 End: 08-01-2024 Patient encounter procedure 08/01/2024 1:00 PM EST Office Visit [facility] [address] [place] [id number] Natalie Bahtti PA [address] [place] [address] Arrived [facility] Comment on above: Arrived Start: 04-17-2024 Influenza vaccination Influenza Vacc ine (#1) [facility] Aerobic culture Aerobic culture Microbiology Routine Nipple discharge Ordered: 08/01/2024 [facility] Comment on above: Ordered: 08/01/2024 Anaerobic culture Anaerobic cult ure Microbiology Routine Nipple discharge Ordered: 08/01/2024 [facility] Comment on above: Ordered: 08/01/2024 Immunizations Immunization Date Immunization Notes Care Provider Fa cility NEGATED: Highlighted row has not occurred!10-06-2023 influenza virus vaccine, unspecified formulation Chris MCINTOSH [facility] [place] Payers Date Payer Category Payer Self-pay 2022 Medicaid [facility] [id number] 2022 Medicaid [id number] 1985 Unknown [id number] 1985 Unknown [id number] 1985 Unknown [id number] [id number] 1985 Unknown [id number] [id number] 1985 Unknown [id number] [id number] 1985 Unknown [id number] [id number] 1985 Unknown [id number] [id number] 1985 Unknown [id number] [id number] 1983 Unknown [id number] [id number] 1985 Unknown [id number] [id number] 1959 Unknown [id number] Unknown [id number] Social History Date Type Detail Facility Start: 01-28-2023 End: 10-06-2023 Tobacco smoking status Never smoked tobacco (finding) [facility] [place] Tobacco smoking status Never [facility] Start: 08-26-2023 End: 09-02-2023 Sex Assigned At Female [facility] Start: 01-28-2023 Tobacco use and exposure Smokeless tobacco non-user [facility] Start: 12-14-2023 End: 08-01-2024 Alcoholic beverage intake Lifetime non-drinker (finding) [facility] Start: 08-26-2023 End: 09-02-2023 History of Social function [facility] Within the last year , have you been afraid of your partner or ex-partner? No [facility] Are you now , , , , never or living with a partner? Never [facility] How often to you hav e a drink containing alcohol? Never [facility] Do you feel stress - tense, restless, nervous, or anxious, or unable to sleep at night because your mind is troubled all the time - these days [OSQ] Only a little [facility] (I/We) worried wheth er (my/our) food would run out before (I/we) got money to buy more. Never true [facility] Start: 1985 Sex assigned at Not on file [facility] Functional Status Date Assessment Result Facility 10-06-2023 Functional Status N/A [facility] History of Present illness Narrative 08-01-2024 ZAMZAM Gutierrez - 08/01/2024 1:00 PM EST Note Date & Type Note Facility 08-01-2024 History of Presen t illness Narrative Reason for Appointment: Patient ID: Kezia Jauregui is a 38 y.o. female who presents for Breast Problem Patient presents today for Acute Visit. MEDICATIONS Current Outpatient Medications Medication Instructions cephalexin (KEFLEX) 500 mg, Oral, 3 times daily ALLERGIES No Known Allergies PROBLEMS Active Ambulatory Problems Diagnosis Date Noted Genital herpes simplex 09/02/2023 Seizure disorder (CMS/HCC) 09/02/2023 Sebaceous cyst 09/02/2023 Resolved Ambulatory Problems Diagnosis Date Noted No Resolved Ambulatory Problems Past Medical History: Diagnosis Date BMI 28.0-28.9,adult Depression screening Encounter for female family planning counseling Herpes Internal derangement of left knee Tinea pedis, right Well woman exam HISTORY PAST MEDICAL HISTORY SOCIAL HISTORY Past Medical History: Diagnosis Date BMI 28.0-28.9,adult Depression screening Encounter for female family planning counseling Herpes Internal derangement of left knee Seizure disorder (CMS/HCC) Tinea pedis, right Well woman exam Social History Tobacco Use Smoking status: Never Smokeless tobacco: Never Substance Use Topics Alcohol use: Never Drug use: Never FAMILY HISTORY Family History Problem Relation Name Age of Onset Diabetes Mother Cancer Mother No Known Problems Father Hypertension Maternal Grandmother Hypertension Maternal Grandfather Hypertension Paternal Grandmother Hypertension Paternal Grandfather Cancer Paternal Great-Grandmother Uterine cancer Paternal Great-Grandmother Cancer Other Breast cancer Other SURGICAL HISTORY Past Surgical History: Procedure Laterality Date CERVICAL BIOPSY W/ LOOP ELECTRODE EXCISION 2013 LEEP DILATION AND CURETTAGE 03/2017 LAPAROTOMY OVARIAN CYSTECTOMY 2016 Cystectomy LAPAROTOMY OVARIAN CYSTECTOMY Left 05/15/2023 OTHER SURGICAL HISTORY 1999 Scar removed PAP SMEAR 12/04/2021 negaitve SALPINGECTOMY Bilateral 05/15/2023 robotic REVIEW OF SYSTEMS Review of Systems: Review of Systems Constitutional: Negative. HENT: Negative. Eyes: Negative. Respiratory: Negative. Cardiovascular: Negative. Gastrointestinal: Negative. Genitourinary: Negative. Musculoskeletal: Negative. Skin: Negative. Neurological: Negative. All other systems reviewed and are negative. Hematological: Negative. Endocrine: Negative. Allergic/Immunologic: Negative. OBJECTIVE Objective: Physical Exam Constitutional: Appearance: Normal appearance. She is normal weight. Genitourinary: Breasts: Left: Nipple discharge present. HENT: Head: Normocephalic. Cardiovascular: Rate and Rhythm: Normal rate. Pulses: Normal pulses. Pulmonary: Effort: Pulmonary effort is normal. Breath sounds: Normal breath sounds. Abdominal: Palpations: Abdomen is soft. Musculoskeletal: General: Normal range of motion. Neurological: General: No focal deficit present. Mental Status: She is alert and oriented to person, place, and time. Psychiatric: Mood and Affect: Mood normal. Behavior: Behavior normal. Thought Content: Thought content normal. Judgment: Judgment normal. Vitals and nursing note reviewed. Vitals: Estimated body mass index is 31.82 kg/m as calculated from the following: Height as of 09/02/23: 5' 1 . Weight as of this encounter: 168 lb 6.4 oz. BP: 100/70 No LMP recorded. ASSESSMENT & PLAN ICD-10-CM 1. Nipple discharge N64.52 Left breast US complete cephalexin (Keflex) 500 MG capsule Anaerobic culture Aerobic culture Patient presents with chief complaint of left nipple discharge for one month. Pt denies pain or rash. Nipples were pierced many years ago but piercing removed over 10 yrs ago. Left nipple discharge noted today and cultures obtained, pt will be placed on keflex and follow up after US performed. Documented by ZAMZAM Gutierrez on behalf of: ZAMZAM Gutierrez documented in this encounter [facility] Clinical Note 10-06-2023 Note Date & Type [...] plan excisional biopsy under local anesthesia at [facility], informed consent obtained. Follow-up No qualifying data available Problem List/Past Medical History Ongoing Allergic rhinitis BMI 30.0-30.9,adult Epidermal cyst of neck Obesity Sebaceous cyst Historical No qualifying data Procedure/Surgical History Dilation and curettage, LEEP, Tubal ligation. Medications Flonase 0.05 mg/inh [place], 1 spray(s), Nasal, BID Allergies No Known Allergies No Known Medication Allergies Social History Alcohol - Denies Alcohol Use, 10/06/2023 Substance Abuse - Denies Substance Abuse, 10/06/2023 Tobacco Never (less than 100 in lifetime) Tobacco Use:. Never Smokeless Tobacco Use:., 10/06/2023 Family History Family history is negative Immunizations Vaccine Date Status Comments influenza virus vaccine, inactivated - Not Given Patient Refuses [facility] Comment on above: Result Comment: Elec tronically Signed By: THOMPSON DUMONT, Chris Beckwith\Date and Time Signed: 10/06/23 14:43 EST Evaluation + Plan note Note Date & Type Note Facility Evaluation + Plan note No data available for this section [facility] [place] Evaluation note Note Date & Type Note Facility Evaluation note Diagnosis Sebaceous cyst- Primary Nipple discharge Other sign and symptom in breast documented in this encounter [facility] Discharge instructions Note Date & Type Note Facility Hospital Discharge instructions No data available for this section [facility] [place] Progress note Note Date & Type Note Facility Progress note No data available for this section [facility] [place] Summary Purpose Family History No Family History [...] DATE CREATED AUTHOR AUTHOR'S ORGANIZ ATION 10/27/2023 [facility] DATE CREATED AUTHOR AUTHOR'S ORGANIZ ATION 11/04/2023 [facility] DATE CREATED AUTHOR AUTHOR'S ORGANIZ ATION [address] [facility] EPIC Patient Care team informatio n (unrecognized section and content) Clinical Office Technician Relationship Specialty Start Date End Date Ashish Tyler MD [address] [place] [address] PCP - General Family Medicine 12/14/23 Clinical Office Technician Relationship Specialty Start Date End Date Ashish Tyler MD [address] [place] [address] PCP - General Family Medicine 12/14/23 Reason for Visit (unrecogniz ed section and content) Reason Comments Breast Problem FOR RECORDS PERTAINING TO PATIENTS WHO ARE [...] BE BASED ON THE PRIMARY CLINICAL RECORDS. [facility]. provides no warranty or guarantee of the accuracy or completeness of information in this document.
== END 2024-08-05 10:30 | disposition home or self-care (01) ==
LOC: US 10:29
PROVIDERS: PCP Family Medicine; Visit Provider Physician Assistant
DX: N64.52 Nipple discharge (principal)
CPT/HCPCS: 76641

== ENCOUNTER 2024-12-19 13:12 | Outpatient (REF) | payer MEDICAID, SELFPAY ==
[2024-12-21 14:10] LABS: Age Gdln ACOG Testing Note (.); HPV Aptima Negative (Negative); IGP, Aptima HPV, rfx 16/18,45 Note (.)
== END 2024-12-19 13:13 | disposition home or self-care (01) ==
LOC: LAB 13:12
PROVIDERS: PCP Family Medicine; Visit Provider Obstetrics & Gynecology
DX: Z01.419 Encounter for gynecological examination (general) (routine) without abnormal findings (principal)
CPT/HCPCS: 87624; 88175